=== PATIENT | female | born 1940 | race Two or more races ===

== ENCOUNTER 2017-11-28 18:35 | Inpatient (IN) | payer BC, OTHER ==
[2017-11-28 19:36] VITALS: BMI 22.9
--- NOTE | 2017-11-28 20:08 | PDOC ---
History of Present Illness - General Chief Complaint: Blood Pressure Problem Stated Complaint: FLU Time Seen by Provider: 11/28/17 19:19 History Source: Patient, Family Exam Limitations: No Limitations - History of Present Illness Initial Comments: 11/28/17 20:03 Patient is a 77-year-old female with history of HTN, HLD, her son for complaint of coughing 3 days, body ache, chest tightness. States cough is productive of sputum, assoc with chest tightness and sob. (+) bodyache, (+) subjective fever. Went to she her pmd yesterday and was given a MDI but did not improved so came to the ED for eval. Denies nausea, vomiting, diarrhea. Had the Flu shot 2 months ago. (+) smoker 3-4 cig per day. Went to urgent care today and had a flu swab (+) Flu A. States she was hypotensive and so sent to the ED. Patient noted to be hypoxic off oxygen to 92%, and hypotensive. PMD: Dr. Cox PMHX: as above ALL: NKDA GENERAL/CONSTITUTIONAL: [No fever or chills. No weakness. No weight change.] HEAD, EYES, EARS, NOSE AND THROAT: [No change in vision. No ear pain or discharge. No sore throat.] CARDIOVASCULAR: [No chest pain or shortness of breath.] RESPIRATORY: [No cough, wheezing, or hemoptysis.] GASTROINTESTINAL: [No nausea, vomiting, diarrhea or constipation. No rectal bleeding.] GENITOURINARY: [No dysuria, frequency, or change in urination.] MUSCULOSKELETAL: (+) joint or muscle swelling or pain. No neck or back pain.] SKIN AND BREASTS: [No rash or easy bruising.] NEUROLOGIC: [No headache, vertigo, loss of consciousness, or loss of sensation.] PSYCHIATRIC: [No depression or anxiety.] ENDOCRINE: [No increased thirst. No abnormal weight change.] HEMATOLOGIC/LYMPHATIC: [No anemia, easy bleeding, or history of blood clots.] ALLERGIC/IMMUNOLOGIC: [No hives or skin allergy. No latex allergy.] GENERAL: [The patient is awake, alert, and fully oriented, in no acute distress , moist cough.] HEAD: [Normal with no signs of trauma.] EYES: [Pupils equal, round and reactive to light, extraocular movements intact, sclera anicteric, conjunctiva clear.] ENT: [Ears normal, nares patent, oropharynx clear without exudates. Moist mucous membranes.] NECK: [Normal range of motion, supple without lymphadenopathy, JVD, or masses.] LUNGS: [Breath sounds equal, clear to auscultation bilaterally. No wheezes, and no crackles, hypoxic] HEART: [Regular rate and rhythm, normal S1 and S2 without murmur, rub.] ABDOMEN: [Soft, nontender, normoactive bowel sounds. No guarding, no rebound. No masses.] EXTREMITIES: [Normal range of motion, no edema. No clubbing or cyanosis. No cords, erythema, or tenderness.] NEUROLOGICAL: [Cranial nerves II through XII grossly intact. Normal speech, normal gait.] PSYCH: [Normal mood, normal affect.] SKIN: [Warm, Dry, normal turgor, no rashes or lesions noted.] Past History - Past Medical History Allergies/Adverse Reactions: Allergies Allergy/AdvReac Type Severity Reaction Status Date / Time No Known Allergies Allergy Verified 11/28/17 19:07 Home Medications: Ambulatory Orders Atorvastatin Ca [Lipitor] 10 mg PO HS #30 tablet 11/24/16 Losartan 50Mg/Hctz 12.5MG [Hyzaar -] 1 tab PO DAILY 11/28/17 Cardiac Disorders: Yes COPD: No Diabetes: Yes HTN: Yes Hypercholesterolemia: Yes - Suicide/Smoking/Psychosocial Hx Smoking History: Former smoker Have you smoked in the past 12 months: Yes Number of Cigarettes Smoked Daily: 3 Information on smoking cessation initiated: No 'Breaking Loose' booklet given: 11/23/16 Hx Alcohol Use: No Drug/Substance Use Hx: No Substance Use Type: None Hx Substance Use Treatment: No *Physical Exam - Vital Signs Last Vital Signs Temp Pulse Resp BP Pulse Ox 98.7 F 78 17 93/58 95 11/28/17 19:07 11/28/17 19:43 11/28/17 19:43 11/28/17 19:43 11/28/17 19:43 ED Treatment Course - LABORATORY CBC & Chemistry Diagram: 11/29/17 07:05 11/29/17 07:05 - RADIOLOGY Radiology Studies Ordered: Category Date Time Status CHEST X-RAY PORTABLE* [RAD] Stat Radiology 11/28/17 19:55 Ordered Medical Decision Making - Medical Decision Making 11/28/17 20:09 Patient is a 77-year-old female with history of HTN, HLD, her son for complaint of coughing 3 days, body ache, chest tightness, noted to be hypotensive and hypoxic on exam. Initiate sepsis workup. noted off oxygen to be 92% labs reviewed noted 11/28/17 21:40 Laboratory Tests 11/28/17 11/28/17 11/28/17 20:20 20:20 20:20 WBC 9.4 D Hgb 14.0 Hct 41.0 Plt Count 265 Sodium 127 L Potassium 4.9 Chloride 92 L Carbon Dioxide 29 Anion Gap 6 L BUN 24 H Creatinine 2.0 H Random Glucose 100 Lactic Acid 1.3 Troponin I 11/28/17 20:20 WBC Hgb Hct Plt Count Sodium Potassium Chloride Carbon Dioxide Anion Gap BUN Creatinine Random Glucose Lactic Acid Troponin I < 0.02 CXR haziness at the right base, not change from prior EKG SR rate 80, NAD, (-) ST-T wave changes, QTc 422 Patient is currently receiving fluids will admit for hypoxia with cough, clinically pneumonia hyponatremia and hypotension 11/28/17 21:45 Given Rocephin 1gm and Zithromax 500mg IV ASA 325mg po given tamiflu 30mg po *DC/Admit/Observation/Transfer Diagnosis at time of Disposition: Hypoxia, Hyponatremia Hypotension Qualifiers: Hypotension type: other hypotension type Qualified Code(s): I95.89 - Other hypotension - Discharge Dispostion Condition at time of disposition: Stable Admit: Yes - Referrals - Patient Instructions - Post Discharge Activity
[2017-11-28 20:38] LABS: BASO % 0.8 % (0-2.0); EOS % 0.1 % (0-4.5); LYMPH % 23.4 % (8-40); MCH 31.1 pg (25.7-33.7); MEAN CELL VOLUME 91.6 fl (80-96); MEAN PLT VOLUME 6.9 fl (7.5-11.1); MONO % 10.2 % (3.8-10.2); NEUT % 65.5 % (42.8-82.8); PLATELET COUNT 265 K/MM3 (134-434); RBC 4.48 M/mm3 (3.60-5.2); RDW 13.2 % (11.6-15.6); WHITE BLOOD COUNT 9.4 K/mm3 (4.0-10.0)
[2017-11-28 20:46] LABS: VENOUS PC02 46.8 mmHg (38-52); VENOUS PH 7.36 (7.32-7.42); VENOUS PO2 20.3 mmHg (28-48)
[2017-11-28] MEDS ORDERED: SODIUM CHLORIDE 0.9% 500 ML INFUS.BAG IV ONE (20:47)
[2017-11-28 20:52] LABS: INR 1.01 (0.82-1.09); PROTHROMBIN TIME (PATIENT) 11.4 SEC (9.98-11.88)
[2017-11-28 20:54] LABS: ACTIVATED PTT 30.5 SECONDS (26.9-34.4)
[2017-11-28 21:03] LABS: ALBUMIN 3.8 g/dl (3.4-5.0); ANION GAP 6 (8-16); BILIRUBIN,TOTAL 0.9 mg/dL (0.2-1.0); BLOOD UREA NITROGEN 24 mg/dL (7-18); CALCIUM 9.1 mg/dL (8.5-10.1); CHLORIDE 92 mmol/L (98-107); CO2 29 mmol/L (21-32); GLUCOSE,RANDOM 100 mg/dL (74-106); POTASSIUM 4.9 mmol/L (3.5-5.1); SGOT/AST 27 U/L (15-37); SGPT/ALT 20 U/L (12-78); SODIUM 127 mmol/L (136-145); TOT PROT 7.5 g/dl (6.4-8.2)
[2017-11-28 21:04] LABS: ALK PHOS 75 U/L (45-117)
[2017-11-28] MEDS ORDERED: CEFTRIAXONE 1 GM in DEXTROSE 5%-WATER - 50 ML IVPB ONE (21:08)
[2017-11-28] MEDS ORDERED: AZITHROMYCIN IVPB 500 MG in DEXTROSE 5%-WATER - 250 ML IVPB ONE (21:08)
[2017-11-28] MEDS ORDERED: AZITHROMYCIN IVPB 250 ML IVPB ONE (21:13)
[2017-11-28] MEDS ORDERED: CEFTRIAXONE 1 GM/50 ML BAG ONE ×2 (21:13→21:14)
[2017-11-28] MEDS ORDERED: SODIUM CHLORIDE 0.9% 1000 ML INFUS.BAG IV SCH (21:15)
[2017-11-28] MEDS ORDERED: ASPIRIN 325 MG ENTERIC COATED TABLET (FP) PO ONE (21:44)
[2017-11-28] MEDS ORDERED: ASPIRIN 325 MG TABLET ONE (21:50)
[2017-11-28] MEDS ORDERED: OSELTAMIVIR PHOSPHATE 30 MG CAPSULE PO ONE (22:39)
[2017-11-28] MEDS ORDERED: SODIUM CHLORIDE 1,000 ML IV SCH (22:45)
[2017-11-28 22:52] LABS: URINE APPEARANCE CLOUDY; URINE BILIRUBIN NEGATIVE (NEGATIVE); URINE BLOOD 1+ (NEGATIVE); URINE COLOR AMBER; URINE GLUCOSE (UA) 1+ (NEGATIVE); URINE KETONE NEGATIVE (NEGATIVE); URINE NITRITE NEGATIVE (NEGATIVE); URINE UROBILINOGEN 4.0 E.U/dl mg/dL (0.2-1.0)
[2017-11-28 22:57] LABS: URINE LEUK ESTERASE 3+ (NEGATIVE); URINE PROTEIN 2+ (NEGATIVE)
[2017-11-28 23:12] LABS: EPI CELLS MANY /HPF (FEW); URINE BACTERIA RARE /hpf (NONE SEEN); URINE HYALINE CAST 22 /lpf; URINE MUCUS FEW
[2017-11-28] MEDS ORDERED: HEPARIN NA (PORCINE) 5,000 UNITS/ML 1ML VIAL ONE (23:38)
[2017-11-28] MEDS: HEPARIN NA (PORCINE) 5,000 UNITS/ML 1ML VIAL SQ SCH (23:43)
--- NOTE | 2017-11-29 | HP ---
CHIEF COMPLAINT: flu like sx x 3 days PCP: HISTORY OF PRESENT ILLNESS: 77 y/o F with PMH HTN, HLD, DM, osteoporosis, who presents to the ED c/o cough, myalgias, and chest tightness over the past three days. As per pt, her sx began suddenly three days ago and have been a/w neck pain (not stiffness), as well as generalized abdominal pain. She endorses productive cough with white sputum ( without blood), as well as loss of appetite during this time. Pt went to her PMD , Dr. Cox yesterday and was given a meter-dose inhaler for sx use, however her sx were not alleviated. For this reason, she went to an urgent care today for further evaluation, where she tested positive for Flu A and was recommended continued follow up in the ED. She also endorses subjective fever and chills. Denies SOB, chest pain or pressure, or changes in urinary or bowel function. While pt was in the ED, she was stated to be hypotensive at 93/58 (MAP 70) and hypoxic on RA. She was started on nonrebreather, then 2-3L via NC where she improved to 94-95 sat. 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 Smoking: smoked for 50 years, 2-3 cigs/day. Still smokes actively, no thoughts of quitting Alcohol: denies Drugs: denies Family History: denies Allergies No Known Allergies Allergy (Verified 11/28/17 19:07) HOME MEDICATIONS: Home Medications Medication Instructions Recorded Atorvastatin Ca [Lipitor] 10 mg PO HS #30 tablet 11/24/16 Losartan 50Mg/Hctz 12.5MG [Hyzaar 1 tab PO DAILY 11/28/17 -] REVIEW OF SYSTEMS CONSTITUTIONAL: +subjective fever, chills, loss of appetite Absent: fever, chills, diaphoresis, generalized weakness, malaise, loss of appetite, weight change HEENT: Absent: rhinorrhea, nasal congestion, throat pain, throat swelling, difficulty swallowing, mouth swelling, ear pain, eye pain, visual changes CARDIOVASCULAR: Absent: chest pain, syncope, palpitations, irregular heart rate, lightheadedness , peripheral edema RESPIRATORY: +cough Absent: cough, shortness of breath, dyspnea with exertion, orthopnea, wheezing, stridor, hemoptysis GASTROINTESTINAL: Absent: abdominal pain, abdominal distension, nausea, vomiting, diarrhea, constipation, melena, hematochezia GENITOURINARY: Absent: dysuria, frequency, urgency, hesitancy, hematuria, flank pain, genital pain MUSCULOSKELETAL: +myalgias Absent: myalgia, arthralgia, joint swelling, back pain, neck pain SKIN: Absent: rash, itching, pallor HEMATOLOGIC/IMMUNOLOGIC: Absent: easy bleeding, easy bruising, lymphadenopathy, frequent infections ENDOCRINE: Absent: unexplained weight gain, unexplained weight loss, heat intolerance, cold intolerance NEUROLOGIC: Absent: headache, focal weakness or paresthesias, dizziness, unsteady gait, seizure, mental status changes, bladder or bowel incontinence PSYCHIATRIC: Absent: anxiety, depression, suicidal or homicidal ideation, hallucinations. PHYSICAL EXAMINATION Vital Signs 11/28/17 11/28/17 11/28/17 19:07 19:43 22:42 Temperature 98.7 F Pulse Rate 83 Pulse Rate [ 78 Radial] Respiratory 20 17 19 Rate Blood Pressure 92/57 Blood Pressure 93/58 111/56 [Arm] O2 Sat by Pulse 100 95 98 Oximetry (%) 11/28/17 23:47 Temperature Pulse Rate Pulse Rate [ 74 Radial] Respiratory 17 Rate Blood Pressure Blood Pressure 95/49 [Arm] O2 Sat by Pulse 100 Oximetry (%) GENERAL: Lying in bed. Awake, alert, and fully oriented, in mild distress. HEAD: Normal with no signs of trauma. EYES: Pupils equal, round and reactive to light, extraocular movements intact, sclera anicteric, conjunctiva clear. No lid lag. EARS, NOSE, THROAT: Ears normal, nares patent, oropharynx clear without exudates. NECK: Normal range of motion, supple without lymphadenopathy, JVD, or masses. LUNGS: Breath sounds equal, clear to auscultation bilaterally. wheezing. no crackles, No accessory muscle use. HEART: Regular rate and rhythm, normal S1 and S2 without murmur, rub or gallop. ABDOMEN: Soft, +BS in all four quadrants. Mildly tender to palpation diffusely. MUSCULOSKELETAL: Normal range of motion at all joints. No bony deformities or tenderness. . LOWER EXTREMITIES: 2+ posterior tibial pulses, warm, well-perfused. No calf tenderness. No peripheral edema. NEUROLOGICAL: Cranial nerves II-XII intact. Normal speech. Laboratory Results 11/28/17 11/28/17 11/28/17 20:20 20:20 20:20 WBC 9.4 D RBC 4.48 Hgb 14.0 Hct 41.0 MCV 91.6 MCH 31.1 MCHC 34.0 RDW 13.2 Plt Count 265 MPV 6.9 L Neutrophils % 65.5 D Lymphocytes % 23.4 D Monocytes % 10.2 Eosinophils % 0.1 D Basophils % 0.8 PT with INR 11.40 INR 1.01 PTT (Actin FS) 30.5 VBG pH 7.36 POC VBG pCO2 46.8 POC VBG pO2 20.3 L Mixed VBG HCO3 26.0 H Sodium 11/28/17 11/28/17 11/28/17 20:20 20:20 20:20 WBC Mixed VBG HCO3 Sodium 127 L Potassium 4.9 Chloride 92 L Carbon Dioxide 29 Anion Gap 6 L BUN 24 H Creatinine 2.0 H Creat Clearance w eGFR 24.29 Random Glucose 100 Lactic Acid 1.3 Calcium 9.1 Total Bilirubin 0.9 AST 27 ALT 20 Alkaline Phosphatase 75 Troponin I < 0.02 Total Protein 7.5 Albumin 3.8 Urine Color Urine Mucus 11/28/17 22:42 WBC RBC Hgb Hct MCV MCHC Monocytes % Eosinophils % Basophils % PT with INR INR PTT (Actin FS) VBG pH POC VBG pCO2 POC VBG pO2 Mixed VBG HCO3 Sodium Potassium Chloride Carbon Dioxide Anion Gap BUN Creatinine Creat Clearance w eGFR Random Glucose Lactic Acid Calcium Total Bilirubin AST ALT Alkaline Phosphatase Troponin I Total Protein Albumin Urine Color [place] Urine Appearance Cloudy Urine pH 5.0 D Ur Specific [place] 1.015 Urine Protein 2+ H Urine Glucose (UA) 1+ H Urine Ketones Negative Urine Blood 1+ H Urine Nitrite Negative Urine Bilirubin Negative Urine Urobilinogen 4.0 e.u/dl H Ur Leukocyte Esterase 3+ H Urine WBC (Auto) 17 Urine RBC (Auto) 7 Ur Epithelial Cells Many Urine Bacteria Rare Hyaline Casts 22 Urine Mucus Few EKG: normal sinus, rate 90, QTc 422ms CXR: no evidence of infiltrate, await official read ASSESSMENT/PLAN: 77 y/o F with PMH HTN, HLD, DM, osteoporosis, who presents to the ED c/o cough, myalgias, and chest tightness over the past three days. Pt admitted to tele observation for hypoxia 2/2 potential influenza, URI, as well as UTI. #Hypoxia 2/2 potential influenza -Pt hypoxic on RA (new) - sat 91-92%, requiring nonrebreather, 02 NC -Urgent care Flu (+), however in house Flu test (-) -Will tx with Tamiflu 30mg PO qd for five day course regardless -Isolation precautions -Unlikely PNA, as infiltrates not noted on CXR. Received CAP coverage - azithro , ceftriaxone x1 in ED. Pt is not septic currently. -Will f/u Legionella urine Ag -F/u blood cx, urine cx #UTI -Pt sx with diffuse TTP in suprapubic region, UA with leuk esterase 3+, 17 WBCs -Received 1 dose ceftriaxone in ED -Will continue ceftriaxone 1g IVPB qd for 2-3 additional days #Hypotension 2/2 decreased fluid intake -Pt currently not hypotensive though BP 90/60's - MAP holding 70 -Will give IVF and reassess #COPD -Wheezing, SOB -Started on duonebs q4h PRN for SOB -F/u Urine cx #RIGOBERTO 2/2 decreased fluid intake -Cr 2, bump up from baseline 1.1 -Gentle hydration IV NS 83 cc/hr -F/u Renal sono -Urine lytes, u osm, serum osm - calculate FEna -F/u BMP #Hyponatremia -Pt appears hypovolemic -Gentle hydration IV NS 83 cc/hr -Careful to not correct too quickly #HTN- currently controlled - hypotensive -Hold meds -Restart on losartan -HCTZ 50-12.5mg tomorrow #HLD -Continue lipitor 10mg PO HS #DM -ISS -BGM -A1c #F/E/N IV NS 83 cc/hr gentle hydration Monitor electrolytes, mainly Na HTN diet #PPX DVT: SCD's, early ambulation #Dispo observation monitoring Visit type - Emergency Visit Emergency Visit: Yes ED Registration Date: 11/28/17 Care time: The patient presented to the Emergency Department on the above date and was hospitalized for further evaluation of their emergent condition. - New Patient This patient is new to me today: Yes Date on this admission: 11/29/17 - Critical Care Critical Care patient: No Hospitalist Screening - Colonoscopy Questionnaire Colonoscopy Questionnaire: Colonoscopy Questionnaire - Patient: 50 - 75 years old and never had a screening colonoscopy: Unknown History of colon or rectal polyps, or CA: Unknown History of IBD, Crohn's disease or UC: Unknown History of abdominal radiation therapy as a child: Unknown - Relative: 1 with colon or rectal CA, or polyps at age 60 or younger: Unknown Colon or rectal CA diagnosed at age 45 or younger: Unknown Multiple relatives with colon or rectal CA: Unknown - Outcome: Screening Result: Negative Screen
--- NOTE | 2017-11-29 04:10 | PN ---
Teaching Attending Note Name of Resident: Ophelia Vick ATTENDING PHYSICIAN STATEMENT I saw and evaluated the patient. I reviewed the resident's note and discussed the case with the resident. I agree with the resident's findings and plan as documented. SUBJECTIVE: 77F smoker presents with cough, body aches, pleuritic chest pain for past 3 days. went to urgent care where apparently flu was positive. OBJECTIVE: NAD mild late exp wheezes bilaterally mild suprapubic tenderness Influenza panel negative Cr 2 from 1.1 baseline BUN 24 NA 127 UA positive ASSESSMENT AND PLAN: 77F with likely viral bronchitis , possible influenza though our panel was negative. complicated by RIGOBERTO, likely hypovolemic hyopnatremia start empric tamiflu, if possible obtain report from urgent care center in AM IVF 100/hr continue ceftriaxone for possible UTI - follow up UCx Renal US, Urine lytes
[2017-11-29] MEDS ORDERED: ALBUTEROL SO4 2.5/IPRATROPIUM 0.5 INH SOL 3 ML VIAL.NEB. NEB PRN (04:21)
[2017-11-29] MEDS: SODIUM CHLORIDE 1,000 ML IV SCH ×2 (04:25→12:06)
[2017-11-29] MEDS: INSULIN SLIDING SCALE (NOVOLOG) 1 VIAL SQ SCH ×4 (06:05→21:31)
[2017-11-29 07:29] LABS: BASO % 0.4 % (0-2.0); EOS % 0.3 % (0-4.5); HEMATOCRIT 35.6 % (32.4-45.2); HEMOGLOBIN 12.2 GM/dL (10.7-15.3); LYMPH % 44.1 % (8-40); MCH 31.1 pg (25.7-33.7); MCHC 34.2 g/dl (32.0-36.0); MEAN CELL VOLUME 90.8 fl (80-96); MEAN PLT VOLUME 6.8 fl (7.5-11.1); MONO % 9.3 % (3.8-10.2); NEUT % 45.9 % (42.8-82.8); PLATELET COUNT 223 K/MM3 (134-434); RBC 3.92 M/mm3 (3.60-5.2); RDW 13.1 % (11.6-15.6); WHITE BLOOD COUNT 7.2 K/mm3 (4.0-10.0)
[2017-11-29 08:24] LABS: ANION GAP 10 (8-16); BLOOD UREA NITROGEN 23 mg/dL (7-18); CHLORIDE 100 mmol/L (98-107); CO2 23 mmol/L (21-32); GLUCOSE,RANDOM 79 mg/dL (74-106); MAGNESIUM 1.9 mg/dL (1.8-2.4); POTASSIUM 4.1 mmol/L (3.5-5.1); SODIUM 133 mmol/L (136-145)
[2017-11-29 08:26] LABS: CREATININE 1.4 mg/dL (0.55-1.02); PHOSPHOROUS 2.8 mg/dL (2.5-4.9)
[2017-11-29] MEDS ORDERED: cefTRIAXone SODIUM 1 GM VIAL ONE (09:17)
[2017-11-29] MEDS ORDERED: DEXTROSE 5%-WATER - 50 ML IVPB ONE (09:18)
[2017-11-29] MEDS: CEFTRIAXONE 1 GM in DEXTROSE 5%-WATER - 50 ML IVPB SCH (09:21)
[2017-11-29] MEDS: HEPARIN NA (PORCINE) 5,000 UNITS/ML 1ML VIAL SQ SCH ×2 (09:23→21:31)
[2017-11-29] MEDS ORDERED: OSELTAMIVIR PHOSPHATE 30 MG CAPSULE PO SCH (10:00)
--- NOTE | 2017-11-29 14:07 | PN ---
Progress Note, Physician Chief Complaint: patient seen and examined sitting in bed says her cough is better - Current Medication List Current Medications: Active Medications Albuterol/Ipratropium (Duoneb -) 1 amp NEB Q4H PRN PRN Reason: SHORTNESS OF BREATH Heparin Sodium (Porcine) (Heparin -) 5,000 unit SQ BID [facility] Last Admin: 11/29/17 09:23 Dose: 5,000 unit Ceftriaxone Sodium 1 gm/ (Dextrose) 50 mls @ 100 mls/hr IVPB DAILY [facility] Last Admin: 11/29/17 09:21 Dose: 100 mls/hr Sodium Chloride (Normal Saline -) 1,000 mls @ 83 mls/hr IV ASDIR [facility] Last Admin: 11/29/17 12:06 Dose: 83 mls/hr Insulin Aspart (Novolog Vial Sliding Scale -) 1 vial SQ ACHS ALLI PRN Reason: Protocol Last Admin: 11/29/17 12:04 Dose: Not Given Oseltamivir Phosphate (Tamiflu -) 30 mg PO DAILY [facility] Stop: 12/04/17 09:59 Last Admin: 11/29/17 11:00 Dose: 30 mg - Objective Vital Signs: Vital Signs Temperature 98.7 F 11/29/17 09:00 Pulse Rate 79 11/29/17 09:00 Respiratory Rate 20 11/29/17 09:00 Blood Pressure 117/63 11/29/17 09:00 O2 Sat by Pulse Oximetry (%) 98 11/29/17 09:00 Constitutional: Yes: Calm Cardiovascular: Yes: Regular Rate and Rhythm, S1, S2 Respiratory: Yes: CTA Bilaterally Neurological: Yes: Alert, Oriented Labs: CBC, BMP 11/29/17 07:05 11/29/17 07:05 INR, PTT INR 1.01 (0.82-1.09) 11/28/17 20:20 Problem List - Problems (1) Cough Assessment/Plan: r/o broncitis legionella negative flu swab is negative iv abx Code(s): R05 - COUGH (2) UTI (urinary tract infection) Assessment/Plan: iv rocephin awaiting final sensitivities Code(s): N39.0 - URINARY TRACT INFECTION, SITE NOT SPECIFIED (3) Hyponatremia Assessment/Plan: ivf - sodium trending upwards renal sono noted- nornmal Code(s): E87.1 - HYPO-OSMOLALITY AND HYPONATREMIA (4) DM2 (diabetes mellitus, type 2) Assessment/Plan: hgab1c is 6.3 prediabetes diet control Code(s): E11.9 - TYPE 2 DIABETES MELLITUS WITHOUT COMPLICATIONS (5) RIGOBERTO (acute kidney injury) Assessment/Plan: improving with iv hydration cr from 2.0 to 1.4 Code(s): N17.9 - ACUTE KIDNEY FAILURE, UNSPECIFIED
--- NOTE | 2017-11-29 14:48 | PN ---
Progress Note (short form) - Note Progress Note: ID Consult dictated Acute influenza UTI RIGOBERTO Await BC Continue ceftriaxone tamiflu Droplet precautions
--- NOTE | 2017-11-29 15:02 | EKG ---
Test Reason : Blood Pressure : / mmHG Vent. Rate : 080 BPM Atrial Rate : 080 BPM P-R Int : 154 ms QRS Dur : 078 ms QT Int : 366 ms P-R-T Axes : 079 072 076 degrees QTc Int : 422 ms POOR DATA QUALITY, INTERPRETATION MAY BE ADVERSELY AFFECTED NORMAL SINUS RHYTHM POSSIBLE LEFT ATRIAL ENLARGEMENT ST ELEVATION, CONSIDER EARLY REPOLARIZATION, PERICARDITIS, OR INJURY WHEN COMPARED WITH ECG OF 23-NOV-2016 00:50, NO SIGNIFICANT CHANGE WAS FOUND Confirmed by GREGG GREGG MD ([id number]) on 11/29/2017 3:01:55 PM Referred By: Confirmed By:GREGG GREGG MD
--- NOTE | 2017-11-29 15:46 | CON.NEP ---
Consult Consult Specialty:: nephrology Reason for Consultation:: hyponatremia - History of Present Illness Chief Complaint: cough/dyspnea History of Present Illness: 77 y/o F with PMH HTN, HLD, DM, osteoporosis, who presents to the ED c/o cough, myalgias, and chest tightness over the past three days. As per pt, her sx began suddenly three days ago and have been a/w neck pain (not stiffness), as well as generalized abdominal pain. She endorses productive cough with white sputum ( without blood), as well as loss of appetite during this time. She was found to have influenza A and came to ED via ambulance. Has no history of ckd or hyponatremia. Was having fevers but no vomting or diarrhea. - History Source History Provided By: Patient, Medical Record Limitations to Obtaining History: No Limitations - Past Medical History Cardio/Vascular: Yes: HTN - Alcohol/Substance Use Hx Alcohol Use: No - Smoking History Smoking history: Former smoker Have you smoked in the past 12 months: Yes Aproximately how many cigarettes per day: 3 Home Medications - Allergies Allergies/Adverse Reactions: Allergies Allergy/AdvReac Type Severity Reaction Status Date / Time No Known Allergies Allergy Verified 11/28/17 19:07 - Home Medications Home Medications: Ambulatory Orders Atorvastatin Ca [Lipitor] 10 mg PO HS #30 tablet 11/24/16 Losartan 50Mg/Hctz 12.5MG [Hyzaar -] 1 tab PO DAILY 11/28/17 Family Disease History - Family Disease History Family History: Unremarkable Review of Systems - Review of Systems Constitutional: reports: Fever Eyes: reports: No Symptoms HENT: reports: No Symptoms Neck: reports: No Symptoms Cardiovascular: reports: Chest Pain, Shortness of Breath Respiratory: reports: Cough, SOB Gastrointestinal: reports: No Symptoms Genitourinary: reports: No Symptoms Breasts: reports: No Symptoms Reported Musculoskeletal: reports: Back Pain, Muscle Cramps Neurological: reports: No Symptoms Endocrine: reports: No Symptoms Hematology/Lymphatic: reports: No Symptoms Psychiatric: reports: No Symptoms Nephrology Consult - Height Height: 5 ft 10 in - Weight Weight: 160 lb - BMI Body Mass Index (BMI): 22.9 - Lab Results CBC,BMP: CBC, BMP 11/29/17 07:05 11/29/17 07:05 Anion Gap: Anion Gap Anion Gap 10 (8-16) 11/29/17 07:05 - Imaging Chest X-ray: Report Reviewed (no acute infiltrates) Ultrasound: Report Reviewed (normal) - Physical Examination Vital Signs: Vital Signs Temperature 98.8 F 11/29/17 14:09 Pulse Rate 81 11/29/17 14:09 Respiratory Rate 18 11/29/17 14:09 Blood Pressure 117/57 11/29/17 14:09 O2 Sat by Pulse Oximetry (%) 98 11/29/17 09:00 Constitutional: Yes: Well Nourished, No Distress, Calm Eyes: Yes: Conjunctiva Clear HENT: Yes: Atraumatic, Normocephalic Neck: Yes: Supple, Trachea Midline Cardiovascular: Yes: Regular Rate and Rhythm Respiratory: Yes: Regular, CTA Bilaterally Gastrointestinal: Yes: Normal Bowel Sounds Musculoskeletal: Yes: WNL Extremities: Yes: WNL Edema: No Peripheral Pulses WNL: Yes Wound/Incision: Yes: Clean/Dry Neurological: Yes: Alert, Oriented Psychiatric: Yes: Alert, Oriented Assessment/Plan IMPRESSION RIGOBERTO associated with hypotension and hyponatremia; already improved with ivf influenza testing was pos as outpatient (reportedly) but negative here does have a urinary tract by UA low urine osm suggestive of increased water clearance PLAN would continue fluids need to clarify if droplet precautions are necessary as suggested by ID abx for uti follow urine cultures would evaluate for ckd as outpatient MV
--- NOTE | 2017-11-29 16:12 | CONS ---
DATE OF CONSULTATION: DATE OF DICTATION: 11/29/2017 INFECTIOUS DISEASE CONSULTATION HISTORY OF PRESENT ILLNESS: The patient is a 77-year-old female who is evaluated for acute influenza and urinary tract infection. The patient reports a 3-day history of chest discomfort, back discomfort, pleuritic-type chest pain, cough productive of whitish sputum and body ache. She had been prescribed an inhaler as an outpatient without significant improvement. Symptoms worsened. She presented to an urgent care center where she was noted to be hypotensive and hypoxemic. A rapid influenza A screen was positive. She is presently admitted to the hospital. She complains of chest and back pain which is pleuritic in nature, cough productive of whitish sputum. She has been afebrile. Cultures were obtained and she was empirically started on Zithromax, ceftriaxone, and Tamiflu. She has urinary frequency and urgency. She denies dysuria. PAST MEDICAL HISTORY: Positive for hypertension, hyperlipidemia. ALLERGIES: No known allergies. MEDICATION: Lipitor, losartan, hydrochlorothiazide. SOCIAL HISTORY: Lives at home with family members. Positive active tobacco use. SYSTEMS REVIEW: Neurologic: No loss of consciousness, seizure activity, or focal weakness. Cardiac: As per HPI. Respiratory: As per HPI. Gastrointestinal: Negative vomiting or diarrhea. Genitourinary: As per HPI. LABORATORY: Lab data, white count on admission 9.4, presently 7.2. Hematocrit 35.6, platelet count 223. BUN 23, creatinine 1.4. Urinalysis: 17 white cells. Chest x-ray negative for acute infiltrate. PHYSICAL EXAMINATION: General: She is awake. She is weak appearing with sinus congestion and cough, slightly dyspneic at rest. Vital signs: Temperature 98.8, blood pressure 117/57, pulse 81 regular, respirations 18 per minute. HEENT: Sclerae anicteric. Oropharynx mild injection. Neck: Supple. No palpable nodes. Cardiovascular: Heart sounds S1, S2. Respiratory: Lungs scattered rhonchi. No wheezing or rales. Abdomen: Soft. Nontender. Extremities: Negative for edema. IMPRESSION: 1. Acute influenza A. 2. Urinary tract infection. 3. Azotemia. Await culture results. Continue ceftriaxone for empiric coverage of urinary tract pathogens. Tamiflu adjusted for creatinine clearance calculated at 40 with 30 mg p.o. b.i.d. for 5 days. precautions. Will follow. Thank you for the kind referral. GREGG VOSS M.D. [facility]ANT[facility]/[id number]
[2017-11-29] MEDS ORDERED: PT OWN MED DRAWER 7, Y5N ONE (21:29)
[2017-11-29] MEDS: OSELTAMIVIR PHOSPHATE 30 MG CAPSULE PO SCH (21:32)
[2017-11-29] MEDS ORDERED: INSULIN (NOVOLOG) ASPART 100 UNITS/ML 10ML VIAL ONE (21:37)
[2017-11-30] MEDS: INSULIN SLIDING SCALE (NOVOLOG) 1 VIAL SQ SCH ×4 (06:40→22:55)
[2017-11-30 07:41] LABS: BASO % 0.9 % (0-2.0); EOS % 0.6 % (0-4.5); HEMATOCRIT 35.2 % (32.4-45.2); HEMOGLOBIN 11.9 GM/dL (10.7-15.3); LYMPH % 46.8 % (8-40); MCH 31.1 pg (25.7-33.7); MCHC 33.9 g/dl (32.0-36.0); MEAN CELL VOLUME 91.9 fl (80-96); MEAN PLT VOLUME 7.2 fl (7.5-11.1); MONO % 8.3 % (3.8-10.2); NEUT % 43.4 % (42.8-82.8); PLATELET COUNT 257 K/MM3 (134-434); RBC 3.83 M/mm3 (3.60-5.2); RDW 13.2 % (11.6-15.6); WHITE BLOOD COUNT 6.7 K/mm3 (4.0-10.0)
[2017-11-30 08:06] LABS: ALBUMIN 3.1 g/dl (3.4-5.0); ANION GAP 5 (8-16); BLOOD UREA NITROGEN 17 mg/dL (7-18); CALCIUM 8.4 mg/dL (8.5-10.1); CHLORIDE 104 mmol/L (98-107); CO2 27 mmol/L (21-32); GLUCOSE,RANDOM 83 mg/dL (74-106); POTASSIUM 4.8 mmol/L (3.5-5.1); SODIUM 136 mmol/L (136-145)
[2017-11-30 08:11] LABS: ALK PHOS 63 U/L (45-117); BILIRUBIN,TOTAL 0.5 mg/dL (0.2-1.0); CREATININE 1.1 mg/dL (0.55-1.02); SGOT/AST 23 U/L (15-37); SGPT/ALT 18 U/L (12-78); TOT PROT 6.2 g/dl (6.4-8.2)
[2017-11-30] MEDS ORDERED: PT OWN MED DRAWER 7, Y5N ONE (09:11)
[2017-11-30] MEDS ORDERED: cefTRIAXone SODIUM 1 GM VIAL ONE (09:11)
[2017-11-30] MEDS ORDERED: DEXTROSE 5%-WATER - 50 ML IVPB ONE (09:12)
[2017-11-30] MEDS: OSELTAMIVIR PHOSPHATE 30 MG CAPSULE PO SCH ×2 (09:17→22:51)
[2017-11-30] MEDS: HEPARIN NA (PORCINE) 5,000 UNITS/ML 1ML VIAL SQ SCH ×2 (09:17→22:51)
[2017-11-30] MEDS: CEFTRIAXONE 1 GM in DEXTROSE 5%-WATER - 50 ML IVPB SCH (09:17)
--- NOTE | 2017-11-30 10:22 | PN ---
Progress Note (short form) - Note Progress Note: RENAL Says she feels better and wants to leave not coughing no nausea or vomiting no diarrhea able to eat says she was not eating or drinking before Last Vital Signs Temp Pulse Resp BP Pulse Ox 99 F 72 19 127/68 98 11/30/17 06:00 11/30/17 06:00 11/30/17 06:00 11/30/17 06:00 11/29/17 21:00 lungs essentially clear, rare crackles cvs s1s2 rr abd soft ext no edema neuro a+ox3 skin no rashes or lesions noted Current Medications Generic Name Dose Route Start Last Admin Trade Name Freq PRN Reason Stop Dose Admin Albuterol/Ipratropium 1 amp 11/29/17 04:21 Duoneb - NEB Q4H PRN SHORTNESS OF BREATH Heparin Sodium (Porcine) 5,000 unit 11/28/17 23:00 11/30/17 09:17 Heparin - SQ 5,000 unit BID ALLI Administration Ceftriaxone Sodium 1 gm/ 50 mls @ 100 mls/hr 11/29/17 10:00 11/30/17 09:17 Dextrose IVPB 100 mls/hr DAILY ALLI Administration Sodium Chloride 1,000 mls @ 83 mls/hr 11/29/17 04:21 11/29/17 12:06 Normal Saline - IV 83 mls/hr ASDIR ALLI Administration Insulin Aspart 1 vial 11/29/17 07:00 11/30/17 06:40 Novolog Vial Sliding Scale - SQ Not Given ACHS ALLI Protocol Oseltamivir Phosphate 30 mg 11/29/17 22:00 11/30/17 09:17 Tamiflu - PO 12/04/17 21:59 30 mg BID ALLI Administration CBC, BMP 11/30/17 06:59 11/30/17 06:59 IMPRESSION RIGOBERTO associated with hypotension and hyponatremia; already improved with ivf influenza testing was pos as outpatient (reportedly) but negative here does have a urinary tract infection by UA hyponatremia and rigoberto improved PLAN can dc fluids and feed abx for uti follow urine cultures would evaluate for ckd as outpatient if she needs tamiflu will need to adjust dose
--- NOTE | 2017-11-30 11:55 | PN ---
Physical Exam: SUBJECTIVE: Patient seen and examined. She feels better. She denies cough, SOB. OBJECTIVE: Vital Signs Period Temp Pulse Resp BP Sys/Watkins Pulse Ox Last 24 Hr 98.0 F-99 F 69-81 18-19 106-127/53-96 96-98 GENERAL: The patient is awake, alert, and fully oriented, in no acute distress. LUNGS: Breath sounds equal, clear to auscultation bilaterally, no wheezes, no crackles, no accessory muscle use. HEART: Regular rate and rhythm, S1, S2 without murmur, rub or gallop. ABDOMEN: Soft, nontender, nondistended, normoactive bowel sounds, no guarding, no rebound, no hepatosplenomegaly, no masses. EXTREMITIES: 2+ pulses, warm, well-perfused, no edema. Laboratory Results - last 24 hr 11/29/17 11/29/17 11/29/17 12:03 17:10 21:27 WBC RBC Hgb Hct MCV MCH MCHC RDW Plt Count MPV Neutrophils % Lymphocytes % Monocytes % Eosinophils % Basophils % Sodium Potassium Chloride Carbon Dioxide Anion Gap BUN Creatinine Creat Clearance w eGFR POC Glucometer 91 95 154 Random Glucose Calcium Total Bilirubin AST ALT Alkaline Phosphatase Total Protein Albumin 11/30/17 11/30/17 11/30/17 06:08 06:59 06:59 WBC 6.7 RBC 3.83 Hgb 11.9 Hct 35.2 MCV 91.9 MCH 31.1 MCHC 33.9 RDW 13.2 Plt Count 257 MPV 7.2 L Neutrophils % 43.4 Lymphocytes % 46.8 H Monocytes % 8.3 Eosinophils % 0.6 D Basophils % 0.9 Sodium 136 Potassium 4.8 Chloride 104 Carbon Dioxide 27 Anion Gap 5 L BUN 17 Creatinine 1.1 H Creat Clearance w eGFR 48.42 POC Glucometer 93 Random Glucose 83 Calcium 8.4 L Total Bilirubin 0.5 D AST 23 ALT 18 Alkaline Phosphatase 63 Total Protein 6.2 L Albumin 3.1 L 11/30/17 11:03 WBC RBC Hgb Hct MCV MCH MCHC RDW Plt Count MPV Neutrophils % Lymphocytes % Monocytes % Eosinophils % Basophils % Sodium Potassium Chloride Carbon Dioxide Anion Gap BUN Creatinine Creat Clearance w eGFR POC Glucometer 97 Random Glucose Calcium Total Bilirubin AST ALT Alkaline Phosphatase Total Protein Albumin Active Medications Generic Name Dose Route Start Last Admin Trade Name Freq PRN Reason Stop Dose Admin Albuterol/Ipratropium 1 amp 11/29/17 04:21 Duoneb - NEB Q4H PRN SHORTNESS OF BREATH Heparin Sodium (Porcine) 5,000 unit 11/28/17 23:00 11/30/17 09:17 Heparin - SQ 5,000 unit BID ALLI Administration Ceftriaxone Sodium 1 gm/ 50 mls @ 100 mls/hr 11/29/17 10:00 11/30/17 09:17 Dextrose IVPB 100 mls/hr DAILY ALLI Administration Sodium Chloride 1,000 mls @ 83 mls/hr 11/29/17 04:21 11/29/17 12:06 Normal Saline - IV 83 mls/hr ASDIR ALLI Administration Insulin Aspart 1 vial 11/29/17 07:00 11/30/17 11:26 Novolog Vial Sliding Scale - SQ Not Given ACHS ALLI Protocol Oseltamivir Phosphate 30 mg 11/29/17 22:00 11/30/17 09:17 Tamiflu - PO 12/04/17 21:59 30 mg BID ALLI Administration ASSESSMENT/PLAN: 1. Acute kidney injury secondary to dehydration - Improved with IV fluid - Discontinue IV fluid and repeat BUN, creatinine in AM 2. Hypovolemic hyponatremia - Improved 3. Influenza A - Complete course of Tamiflu 4. UTI - Continue Rocephin (day 2) 5. Type 2 DM - Continue Novolog sliding scale 6. HTN - Meds held secondary to hypotension 7. Hyperlipidemia Visit type - Emergency Visit Emergency Visit: Yes ED Registration Date: 11/28/17 Care time: The patient presented to the Emergency Department on the above date and was hospitalized for further evaluation of their emergent condition. - New Patient This patient is new to me today: Yes Date on this admission: 11/30/17 - Critical Care Critical Care patient: No - Discharge Referral Referred to [facility] Med P.C[facility] No
[2017-11-30] MEDS: SODIUM CHLORIDE 1,000 ML IV SCH (15:32)
[2017-11-30] MEDS ORDERED: INSULIN (NOVOLOG) ASPART 100 UNITS/ML 10ML VIAL ONE (21:00)
[2017-12-01] MEDS: INSULIN SLIDING SCALE (NOVOLOG) 1 VIAL SQ SCH (06:35)
[2017-12-01 07:58] LABS: ANION GAP 9 (8-16); BLOOD UREA NITROGEN 12 mg/dL (7-18); CALCIUM 9.6 mg/dL (8.5-10.1); CHLORIDE 104 mmol/L (98-107); CO2 26 mmol/L (21-32); GLUCOSE,RANDOM 80 mg/dL (74-106); POTASSIUM 5.3 mmol/L (3.5-5.1); SODIUM 139 mmol/L (136-145)
[2017-12-01 08:02] LABS: CREATININE 1.1 mg/dL (0.55-1.02)
[2017-12-01] MEDS ORDERED: DEXTROSE 5%-WATER - 50 ML IVPB ONE (09:37)
[2017-12-01] MEDS ORDERED: cefTRIAXone SODIUM 1 GM VIAL ONE (09:37)
[2017-12-01] MEDS ORDERED: PT OWN MED DRAWER 7, Y5N ONE ×2 (09:37→11:00)
[2017-12-01] MEDS: CEFTRIAXONE 1 GM in DEXTROSE 5%-WATER - 50 ML IVPB SCH (09:55)
[2017-12-01] MEDS: HEPARIN NA (PORCINE) 5,000 UNITS/ML 1ML VIAL SQ SCH (09:56)
[2017-12-01] MEDS: OSELTAMIVIR PHOSPHATE 30 MG CAPSULE PO SCH (09:56)
--- NOTE | 2017-12-01 11:10 | PN ---
Progress Note (short form) - Note Progress Note: RENAL Says she feels better and wants to leave not coughing no nausea or vomiting no diarrhea able to eat Last Vital Signs Temp Pulse Resp BP Pulse Ox 98.9 F 80 16 148/83 95 12/01/17 06:00 12/01/17 06:00 12/01/17 06:00 12/01/17 06:00 11/30/17 21:00 lungs essentially clear cvs s1s2 rr abd soft ext no edema neuro a+ox3 skin no rashes or lesions noted CBC, BMP 11/30/17 06:59 12/01/17 06:57 Current Medications Generic Name Dose Route Start Last Admin Trade Name Freq PRN Reason Stop Dose Admin Albuterol/Ipratropium 1 amp 11/29/17 04:21 Duoneb - NEB Q4H PRN SHORTNESS OF BREATH Heparin Sodium (Porcine) 5,000 unit 11/28/17 23:00 12/01/17 09:56 Heparin - SQ 5,000 unit BID ALLI Administration Ceftriaxone Sodium 1 gm/ 50 mls @ 100 mls/hr 11/29/17 10:00 12/01/17 09:55 Dextrose IVPB 100 mls/hr DAILY ALLI Administration Insulin Aspart 1 vial 11/29/17 07:00 12/01/17 06:35 Novolog Vial Sliding Scale - SQ Not Given ACHS ALLI Protocol Oseltamivir Phosphate 30 mg 11/29/17 22:00 12/01/17 09:56 Tamiflu - PO 12/04/17 21:59 30 mg BID ALLI Administration IMPRESSION RIGOBERTO associated with hypotension and hyponatremia; already improved with ivf influenza testing was pos as outpatient (reportedly) but negative here does have a urinary tract infection by UA hyponatremia and rigoberto improved probably does have some degree of ckd PLAN abx for uti would evaluate for ckd as outpatient continue current management MV
[2017-12-01 11:16] VITALS: BP 127/73; PULSE 84; TEMP 98.4
--- NOTE | 2017-12-01 13:42 | DS ---
Physical Exam: SUBJECTIVE: Patient seen and examined OBJECTIVE: Vital Signs Period Temp Pulse Resp BP Sys/Watkins Pulse Ox Last 24 Hr 98.4 F-98.9 F 69-84 16-22 125-148/62-83 95 PHYSICAL EXAM GENERAL: The patient is awake, alert, and fully oriented, in no acute distress. HEAD: Normal with no signs of trauma. EYES: PERRL, extraocular movements intact, sclera anicteric, conjunctiva clear. ENT: Ears normal, nares patent, oropharynx clear without exudates, moist mucous membranes. NECK: Trachea midline, full range of motion, supple. LUNGS: Breath sounds equal, clear to auscultation bilaterally, no wheezes, no crackles, no accessory muscle use. HEART: Regular rate and rhythm, S1, S2 without murmur, rub or gallop. ABDOMEN: Soft, nontender, nondistended, normoactive bowel sounds, no guarding, no rebound, no hepatosplenomegaly, no masses. EXTREMITIES: 2+ pulses, warm, well-perfused, no edema. NEUROLOGICAL: Cranial nerves II through XII grossly intact. Normal speech, gait not observed. PSYCH: Normal mood, normal affect. SKIN: Warm, dry, normal turgor, no rashes or lesions noted. LABS Laboratory Results - last 24 hr 11/30/17 11/30/17 12/01/17 17:54 22:53 06:33 Sodium Potassium Chloride Carbon Dioxide Anion Gap BUN Creatinine POC Glucometer 124 95 83 Random Glucose Calcium 12/01/17 06:57 Sodium 139 Potassium 5.3 H Chloride 104 Carbon Dioxide 26 Anion Gap 9 BUN 12 Creatinine 1.1 H POC Glucometer Random Glucose 80 Calcium 9.6 HOSPITAL COURSE: Date of Admission:11/28/17 Date of Discharge: 12/01/17 Minutes to complete discharge: 30 Discharge Summary Reason For Visit: HYPONATREMIA,HYPOXIA,HYPOTENSION Current Active Problems RIGOBERTO (acute kidney injury) (Acute) Cough (Acute) Hyponatremia (Acute) Hypotension (Acute) Hypoxia (Acute) UTI (urinary tract infection) (Acute) Condition: Improved - Instructions Diet, Activity, Other Instructions: You were admitted for dehydration with low sodium from the flu and a urinary tract infection. You were treated with IV fluid, Tamiflu for the flu, and Rocephin for 3 days for the urinary tract infection. 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 You may resume your usual diet and activity. Please schedule an appointment with your primary care physician, Dr. Cox, this week. If you develop fever, chills, shortness of breath, please call his office or return to the ER. Referrals: Darrin Cox MD [Primary Care Provider] - 1 Week Disposition: HOME - Home Medications Comprehensive Discharge Medication List: Ambulatory Orders Atorvastatin Ca [Lipitor] 10 mg PO HS #30 tablet 11/24/16 Losartan 50Mg/Hctz 12.5MG [Hyzaar -] 1 tab PO DAILY 11/28/17 Oseltamivir Phosphate [Tamiflu -] 30 mg PO BID #6 capsule 12/01/17 This patient is new to me today: No Emergency Visit: Yes ED Registration Date: 11/28/17 Care time: The patient presented to the Emergency Department on the above date and was hospitalized for further evaluation of their emergent condition. Critical Care patient: No - Discharge Referral Referred to [facility] Med P.C.: No
== END 2017-12-01 15:35 | disposition home or self-care (01) | DRG 683 ==
LOC: JER 18:35 → JERBED 21:54 → J4W 11-29 02:04
PROVIDERS: ADMIT Internal Medicine; ATTEND Internal Medicine
DX: N17.9 Acute kidney failure, unspecified (principal); N39.0 Urinary tract infection, site not specified; E87.1 Hypo-osmolality and hyponatremia; I95.9 Hypotension, unspecified; J44.9 Chronic obstructive pulmonary disease, unspecified; E78.5 Hyperlipidemia, unspecified; I10 Essential (primary) hypertension; E11.9 Type 2 diabetes mellitus without complications; M81.0 Age-related osteoporosis without current pathological fracture; E86.0 Dehydration; Z87.891 Personal history of nicotine dependence; J10.1 Influenza due to other identified influenza virus with other respiratory manifestations
CPT/HCPCS: 36415; 71045-TC-FY; 76775-TC; 80048; 80053; 81003; 81015; 82436; 82803; 82962; 83036; 83605; 83735; 83930; 83935; 84100; 84133; 84300; 84484; 85025; 85610; 85730; 87040; 87086; 87804; 87899; 93005; 93010; 99285-25; J1644; J7030

== ENCOUNTER 2018-02-08 06:41 | Observation (INO) | payer BC, OTHER ==
[2018-02-08 07:12] VITALS: BMI 22.9
--- NOTE | 2018-02-08 07:17 | PDOC ---
Attending Attestation - Resident Resident Name: Ivan Chacko - ED Attending Attestation I have performed the following: I have examined & evaluated the patient, The case was reviewed & discussed with the resident, I agree w/resident's findings & plan, Exceptions are as noted - Medical Decision Making 02/08/18 07:17 I, Dr. Shamika Borges, DO, attest that this document has been prepared under my direction and personally reviewed by me in its entirety. I further attest, that it accurately reflects all work, treatment, procedures and medical decision -making performed by me. 02/08/18 08:27 a/p: 77yo female with palpitations and substernal cp assoc with sob this AM -no radiation -lasted 30 min -hx of htn, hld, smoking -no pain at this time -took asa at home -will check labs, ekg, cxr, tsh -no recent travel -no leg swelling, calf cramping, no pleuritic chest pain <Shamika Borges - Last Filed: 02/08/18 08:27> - HPI HPI: 02/08/18 09:38 The patient is a 77 year old female with a past medical history of DM, HTN, HLD , tobacco abuse (0.25 packs per day) who presents to the Emergency Department today with chest pain and palpitations that woke her up from sleep this morning. She says the pain has now improved but has not resolved. She describes her pain as mid-sternal and non-radiating. She endorses exacerbated pain with inspiration and palpitations. She denies associated shortness of breath and diaphoresis. She denies fever, chills, nausea, and diarrhea. She denies leg swelling, recent travel, history of blood clots. She denies recent increases in physical activities. She states that she took 1 baby aspirin at home in 2 while in the ED. - Physicial Exam PE: 02/08/18 09:39 GENERAL: Awake, alert, and fully oriented, in no acute distress HEAD: No signs of trauma EYES: PERRLA, EOMI, sclera anicteric, conjunctiva clear ENT: Auricles normal inspection, hearing grossly normal, nares patent, oropharynx clear without exudates. Moist mucosa NECK: Normal ROM, supple, no lymphadenopathy, JVD, or masses LUNGS: Breath sounds equal, clear to auscultation bilaterally. No wheezes, and no crackles HEART: (+) Reproducible mid-sternal chest tenderness on palpation. Regular rate and rhythm, normal S1 and S2, no murmurs, rubs or gallops ABDOMEN: Soft, nontender, normoactive bowel sounds. No guarding, no rebound. No masses EXTREMITIES: Normal range of motion, no edema. No clubbing or cyanosis. No cords, erythema, or tenderness NEUROLOGICAL: Cranial nerves II through XII grossly intact. Normal speech, normal gait SKIN: Warm, Dry, normal turgor, no rashes or lesions noted. - Medical Decision Making 02/08/18 09:39 Documentation prepared by Lloyd Medina, acting as medical technician assistant for Shamika Borges DO. <Lloyd Medina - Last Filed: 02/08/18 09:39> Heart Score/ECG Review - ECG Intrepretation Comment:: 02/08/18 08:36 sinus at 75, nl axis, nl interval, t wave inversions V2 and Avl which are unchanged from prior ekg in november 2017 <Shamika Borges - Last Filed: 02/08/18 08:27>
[2018-02-08] MEDS ORDERED: ASPIRIN 81 MG CHEWABLE TABLETS PO ONE (07:25)
[2018-02-08] MEDS ORDERED: ASPIRIN 81 MG CHEWABLE TABLETS ONE (07:34)
--- NOTE | 2018-02-08 07:34 | PDOC ---
History of Present Illness - General Chief Complaint: Palpitations Stated Complaint: PALPITATIONS Time Seen by Provider: 02/08/18 07:07 History Source: Patient Exam Limitations: Language Barrier - History of Present Illness Initial Comments: 02/08/18 07:39 Patient is an 77F with history of DM, HTN, HLD, tobacco abuse here today complaining of chest pain and palpitations that woke her up from sleep this morning. She says the pain has now improved but has not resolved. Denies associated shortness of breath. Patient endorses increased pain with palpation and inspiration. Patient denies leg swelling, recent travel, history of blood clots. Patient denies fevers, chills, nausea, vomiting and shortness of breath. Denies recent increases in physical activities. 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 Past History - Past Medical History Allergies/Adverse Reactions: Allergies Allergy/AdvReac Type Severity Reaction Status Date / Time No Known Allergies Allergy Verified 02/08/18 08:20 Home Medications: Ambulatory Orders Atorvastatin Ca [Lipitor] 10 mg PO HS #30 tablet 11/24/16 Losartan 50Mg/Hctz 12.5MG [Hyzaar -] 1 tab PO DAILY 11/28/17 Cardiac Disorders: Yes COPD: No Diabetes: Yes HTN: Yes Hypercholesterolemia: Yes - Suicide/Smoking/Psychosocial Hx Smoking History: Never smoked Have you smoked in the past 12 months: No Number of Cigarettes Smoked Daily: 3 Information on smoking cessation initiated: No 'Breaking Loose' booklet given: 11/23/16 Hx Alcohol Use: No Drug/Substance Use Hx: No Substance Use Type: None Hx Substance Use Treatment: No Review of Systems - Review of Systems Able to Perform ROS?: Yes Comments:: 02/08/18 07:41 GENERAL/CONSTITUTIONAL: No fever or chills. No weakness. HEAD, EYES, EARS, NOSE AND THROAT: No change in vision. No sore throat. CARDIOVASCULAR: Positive for chest pain. Negative for shortness of breath RESPIRATORY: No cough, wheezing, or hemoptysis. GASTROINTESTINAL: No nausea, vomiting, diarrhea or constipation. GENITOURINARY: No dysuria, frequency, or change in urination. MUSCULOSKELETAL: No joint or muscle swelling or pain. No neck or back pain. SKIN: No rash NEUROLOGIC: No headache, vertigo, loss of consciousness, or change in strength/ sensation. HEMATOLOGIC/LYMPHATIC: No anemia, easy bleeding, or history of blood clots. ALLERGIC/IMMUNOLOGIC: No hives or skin allergy. *Physical Exam - Vital Signs Last Vital Signs Temp Pulse Resp BP Pulse Ox 97.7 F 81 19 134/66 99 02/08/18 07:09 02/08/18 07:09 02/08/18 07:09 02/08/18 07:09 02/08/18 07:46 - Physical Exam Comments: 02/08/18 07:43 GENERAL: Awake, alert, and fully oriented, in no acute distress HEAD: No signs of trauma, normocephalic, atraumatic EYES: PERRLA, EOMI, sclera anicteric, conjunctiva clear ENT: Auricles normal inspection, hearing grossly normal, nares patent, oropharynx clear without exudates. Moist mucosa NECK: Normal ROM, supple, no lymphadenopathy, JVD, or masses LUNGS: No distress, speaks full sentences, clear to auscultation bilaterally HEART: Regular rate and rhythm, normal S1 and S2, no murmurs, rubs or gallops, peripheral pulses normal and equal bilaterally. ABDOMEN: Soft, nontender, normoactive bowel sounds. No guarding, no rebound. No masses EXTREMITIES: Normal inspection, Normal range of motion, no edema. No clubbing or cyanosis. NEUROLOGICAL: Cranial nerves II through XII grossly intact. Normal speech, no focal sensorimotor deficits SKIN: Warm, Dry, normal turgor, no rashes or lesions noted. Heart Score/ECG Review - History History: Slightly suspicious - Electrocardiogram EKG: Non specific repolarization disturbance - Age Age: >/= 65 - Risk Factors Risk Factors Heart Score: Yes Hx Hypercholesterolemia, Yes Hx Hypertension, Yes Hx Diabetes Based on the list above the patient has:: >/=3 risk factors or Hx atherosclerotic disease - Troponin Troponin: </= normal limit - Score Heart Score - Total: 5 ED Treatment Course - LABORATORY CBC & Chemistry Diagram: 02/08/18 07:30 02/08/18 07:30 - ADDITIONAL ORDERS Additional order review: Laboratory Results 02/08/18 02/08/18 07:30 07:30 PT with INR 11.40 INR 1.01 Sodium 135 L Potassium 4.8 Chloride 101 Carbon Dioxide 27 Anion Gap 7 L BUN 28 H Creatinine 1.7 H Creat Clearance w eGFR 29.30 Random Glucose 85 Calcium 10.2 H Magnesium 2.2 Total Bilirubin 0.8 D AST 26 ALT 22 Alkaline Phosphatase 69 Creatine Kinase 176 Troponin I < 0.02 Total Protein 7.6 Albumin 3.9 02/08/18 07:30 RBC 4.18 MCV 91.6 MCHC 33.8 RDW 13.4 MPV 6.5 L Neutrophils % 43.6 Lymphocytes % 45.8 H Monocytes % 7.0 Eosinophils % 2.5 D Basophils % 1.1 - RADIOLOGY Radiology Studies Ordered: Category Date Time Status CHEST X-RAY PORTABLE* [RAD] Stat Radiology 02/08/18 07:26 Completed - Medications Given in the ED: ED Medications Discontinued Medications Generic Name Dose Route Start Last Admin Trade Name Freq PRN Reason Stop Dose Admin Aspirin 162 mg 02/08/18 07:25 02/08/18 07:35 Asa - PO 02/08/18 07:26 162 mg ONCE ONE Administration Medical Decision Making - Medical Decision Making 02/08/18 07:43 Patient is 77F with history of HTN, HLD, DM, and tobacco abuse here today with chest pain. Vital signs stable, O2 sat of 9 is in error. DDx includes, but is not limited to: ACS, arrhythmia, costcochondritis. Do not suspect PE at this time given history and physical. Will do cardiac workup. Will give patient aspirin. While symptoms are atypical, patient does have multiple risk factors and a baseline HEART score of 4. Likely admit. 02/08/18 08:28 EKG shows normal sinus rhythm with rate of 75. EKG shows apparent ST elevations in V4/5 without any reciprocal depressions. Inverted t wave in aVL. Both of these found on prior EKG from 11/28/17. Normal QRS/QTc/MS intervals 02/08/18 09:02 Laboratory Tests 12/01/17 02/08/18 02/08/18 06:57 07:30 07:30 WBC 5.9 Hgb 13.0 Plt Count 293 Creatinine 1.1 H 1.7 H Troponin I < 0.02 CBC normal. Cr shows evidence of RIGOBERTO, given 500cc of fluids. Troponin undetectable. HEART score 5. Will obs tele. 02/08/18 09:04 CXR shows no acute cardiopulmonary process. 02/08/18 09:25 Obs tele via [facility]. *DC/Admit/Observation/Transfer Diagnosis at time of Disposition: Chest pain - Discharge Dispostion Condition at time of disposition: Stable Decision to Admit order: Yes Decision to Admit order Date/Time: Decision to Admit Order Category Date Time Status Decision to Admit to Hospital Routine Admission 02/08/18 09:25 Active - Referrals Referrals: Darrin Cox MD [Primary Care Provider] - - Patient Instructions - Post Discharge Activity
[2018-02-08 07:52] LABS: BASO % 1.1 % (0-2.0); EOS % 2.5 % (0-4.5); HEMATOCRIT 38.3 % (32.4-45.2); LYMPH % 45.8 % (8-40); MCHC 33.8 g/dl (32.0-36.0); MEAN CELL VOLUME 91.6 fl (80-96); MEAN PLT VOLUME 6.5 fl (7.5-11.1); NEUT % 43.6 % (42.8-82.8); PLATELET COUNT 293 K/MM3 (134-434); RBC 4.18 M/mm3 (3.60-5.2); RDW 13.4 % (11.6-15.6); WHITE BLOOD COUNT 5.9 K/mm3 (4.0-10.0)
[2018-02-08 08:13] LABS: INR 1.01 (0.82-1.09); PROTHROMBIN TIME (PATIENT) 11.4 SEC (9.7-13.0)
[2018-02-08 08:24] LABS: ALBUMIN 3.9 g/dl (3.4-5.0); ANION GAP 7 (8-16); BILIRUBIN,TOTAL 0.8 mg/dL (0.2-1.0); BLOOD UREA NITROGEN 28 mg/dL (7-18); CALCIUM 10.2 mg/dL (8.5-10.1); CHLORIDE 101 mmol/L (98-107); CO2 27 mmol/L (21-32); CREATININE 1.7 mg/dL (0.55-1.02); GLUCOSE,RANDOM 85 mg/dL (74-106); MAGNESIUM 2.2 mg/dL (1.8-2.4); POTASSIUM 4.8 mmol/L (3.5-5.1); SGOT/AST 26 U/L (15-37); SGPT/ALT 22 U/L (12-78); SODIUM 135 mmol/L (136-145); TOT PROT 7.6 g/dl (6.4-8.2)
[2018-02-08 08:28] LABS: ALK PHOS 69 U/L (45-117)
[2018-02-08] MEDS ORDERED: SODIUM CHLORIDE 500 ML IV STA (09:02)
[2018-02-08] MEDS ORDERED: ONDANSETRON 4 MG/2 ML VIAL IVPUSH PRN (09:31)
[2018-02-08] MEDS ORDERED: ACETAMINOPHEN 325 MG TABLET (FP) PO PRN (09:31)
[2018-02-08 10:35] LABS: BASO % 0.7 % (0-2.0); EOS % 0.8 % (0-4.5); HEMATOCRIT 37.9 % (32.4-45.2); HEMOGLOBIN 12.7 GM/dL (10.7-15.3); LYMPH % 37.6 % (8-40); MCH 30.7 pg (25.7-33.7); MCHC 33.4 g/dl (32.0-36.0); MEAN CELL VOLUME 91.9 fl (80-96); MEAN PLT VOLUME 6.9 fl (7.5-11.1); MONO % 4.5 % (3.8-10.2); NEUT % 56.4 % (42.8-82.8); PLATELET COUNT 284 K/MM3 (134-434); RBC 4.13 M/mm3 (3.60-5.2); RDW 13.7 % (11.6-15.6); WHITE BLOOD COUNT 6.3 K/mm3 (4.0-10.0)
[2018-02-08 10:50] LABS: INR 1.01 (0.82-1.09); PROTHROMBIN TIME (PATIENT) 11.4 SEC (9.7-13.0)
[2018-02-08 11:26] LABS: ANION GAP 7 (8-16); BILIRUBIN,TOTAL 0.8 mg/dL (0.2-1.0); BLOOD UREA NITROGEN 28 mg/dL (7-18); CALCIUM 10.3 mg/dL (8.5-10.1); CHLORIDE 101 mmol/L (98-107); CO2 27 mmol/L (21-32); CREATININE 1.6 mg/dL (0.55-1.02); GLUCOSE,RANDOM 81 mg/dL (74-106); MAGNESIUM 2.1 mg/dL (1.8-2.4); POTASSIUM 4.9 mmol/L (3.5-5.1); SGOT/AST 26 U/L (15-37); SGPT/ALT 21 U/L (12-78); SODIUM 135 mmol/L (136-145); TOT PROT 7.4 g/dl (6.4-8.2)
[2018-02-08 11:35] LABS: ALK PHOS 67 U/L (45-117)
--- NOTE | 2018-02-08 13:38 | HP ---
PCP: Darrin Cox CHIEF COMPLAINT: Chest pain HISTORY OF PRESENT ILLNESS: This is a 77 year old woman who comes to the ED complaining of chest pain and palpitations. She was awakened from sleep by the symptoms. Pain was worse with inspiration and did not radiate. She denies SOB, nausea, diaphoresis. She took baby aspirin at home before coming to the ED. Currently she has no pain. PAST MEDICAL HISTORY HTN Hyperlipidemia PAST SURGICAL HISTORY Denies Allergies No Known Allergies Allergy (Verified 02/08/18 08:20) Home Medications Medication Instructions Recorded Atorvastatin Ca [Lipitor] 10 mg PO HS #30 tablet 11/24/16 Losartan 50Mg/Hctz 12.5MG [Hyzaar 1 tab PO DAILY 11/28/17 -] Social History Smoking: Smokes several cigarettes per day Alcohol: Denies Drugs: Denies Recent Travel: No Family History Unremarkable REVIEW OF SYSTEMS CONSTITUTIONAL: Absent: fever, chills, diaphoresis, generalized weakness, malaise, loss of appetite, weight change HEENT: Absent: rhinorrhea, nasal congestion, throat pain, throat swelling, difficulty swallowing, mouth swelling, ear pain, eye pain, visual changes CARDIOVASCULAR: Present: chest pain, palpitations. Absent: syncope, lightheadedness, peripheral edema RESPIRATORY: Absent: cough, shortness of breath, dyspnea with exertion, orthopnea, wheezing, stridor, hemoptysis GASTROINTESTINAL: Absent: abdominal pain, abdominal distension, nausea, vomiting , diarrhea, constipation, melena, hematochezia GENITOURINARY: Absent: dysuria, frequency, urgency, hesitancy, hematuria, flank pain MUSCULOSKELETAL: Absent: myalgia, arthralgia, joint swelling, back pain, neck pain SKIN: Absent: rash, itching, pallor HEMATOLOGIC/IMMUNOLOGIC: Absent: easy bleeding, easy bruising, lymphadenopathy, frequent infections ENDOCRINE: Absent: unexplained weight gain, unexplained weight loss, heat intolerance, cold intolerance NEUROLOGIC: Absent: headache, focal weakness, paresthesias, dizziness, unsteady gait, seizure, mental status changes, bladder or bowel incontinence PSYCHIATRIC: Absent: anxiety, depression, suicidal or homicidal ideation, hallucinations. PHYSICAL EXAMINATION Vital Signs - 24 hr 02/08/18 02/08/18 02/08/18 07:09 07:46 10:49 Temperature 97.7 F 98.0 F Pulse Rate 81 Pulse Rate [ 82 Right] Respiratory 19 18 Rate Blood Pressure 134/66 Blood Pressure 128/77 [Right Arm] O2 Sat by Pulse 9 L 99 95 Oximetry (%) 02/08/18 12:28 Temperature 98.4 F Pulse Rate 83 Pulse Rate [ Right] Respiratory 18 Rate Blood Pressure 137/67 Blood Pressure [Right Arm] O2 Sat by Pulse 95 Oximetry (%) GENERAL: Awake, alert, and fully oriented, in no acute distress. HEAD: Normal with no signs of trauma. EYES: Pupils equal, round and reactive to light, extraocular movements intact, sclera anicteric, conjunctiva clear. EARS, NOSE, THROAT: Ears normal, nares patent, oropharynx clear without exudates. Moist mucous membranes. NECK: Normal range of motion, supple without lymphadenopathy, JVD, or masses. LUNGS: Breath sounds equal, clear to auscultation bilaterally. No wheezes, and no crackles. No accessory muscle use. HEART: Regular rate and rhythm, normal S1 and S2 without murmur, rub or gallop. ABDOMEN: Soft, nontender, not distended, normoactive bowel sounds, no guarding, no rebound, no masses. No hepatomegaly or splenomegaly. MUSCULOSKELETAL: Normal range of motion at all joints. No bony deformities or tenderness. No CVA tenderness. UPPER EXTREMITIES: 2+ pulses, warm, well-perfused. No cyanosis. No clubbing. No peripheral edema. LOWER EXTREMITIES: 2+ pulses, warm, well-perfused. No calf tenderness. No peripheral edema. NEUROLOGICAL: Cranial nerves II-XII intact. Normal speech. Gait not observed. PSYCHIATRIC: Cooperative. Good eye contact. Appropriate mood and affect. SKIN: Warm, dry, normal turgor, no rashes or lesions noted, normal capillary refill. Laboratory Results - last 24 hr 02/08/18 02/08/18 02/08/18 07:30 07:30 07:30 WBC 5.9 RBC 4.18 Hgb 13.0 Hct 38.3 MCV 91.6 MCH 31.0 MCHC 33.8 RDW 13.4 Plt Count 293 MPV 6.5 L Neutrophils % 43.6 Lymphocytes % 45.8 H Monocytes % 7.0 Eosinophils % 2.5 D Basophils % 1.1 Nucleated RBC % 0 PT with INR 11.40 INR 1.01 Sodium 135 L Potassium 4.8 Chloride 101 Carbon Dioxide 27 Anion Gap 7 L BUN 28 H Creatinine 1.7 H Creat Clearance w eGFR 29.30 Random Glucose 85 Calcium 10.2 H Magnesium 2.2 Total Bilirubin 0.8 D AST 26 ALT 22 Alkaline Phosphatase 69 Creatine Kinase 176 Creatine Kinase Index 1.6 CK-MB (CK-2) 2.820 Troponin I < 0.02 Total Protein 7.6 Albumin 3.9 TSH 2.10 02/08/18 02/08/18 02/08/18 10:00 10:20 10:20 WBC 6.3 RBC 4.13 Hgb 12.7 Hct 37.9 MCV 91.9 MCH 30.7 MCHC 33.4 RDW 13.7 Plt Count 284 MPV 6.9 L Neutrophils % 56.4 D Lymphocytes % 37.6 Monocytes % 4.5 Eosinophils % 0.8 Basophils % 0.7 Nucleated RBC % 0 PT with INR 11.40 INR 1.01 Sodium 135 L Potassium 4.9 Chloride 101 Carbon Dioxide 27 Anion Gap 7 L BUN 28 H Creatinine 1.6 H Creat Clearance w eGFR 31.42 Random Glucose 81 Calcium 10.3 H Magnesium 2.1 Total Bilirubin 0.8 AST 26 ALT 21 Alkaline Phosphatase 67 Creatine Kinase 169 Creatine Kinase Index 1.6 CK-MB (CK-2) 2.708 Troponin I < 0.02 Total Protein 7.4 Albumin 4.0 TSH 1.45 ASSESSMENT/PLAN: This is a 77 year old woman with a history of HTN, hyperlipdemia, tobacco use who presents to the ED with chest pain and palpitations. 1. Chest pain - Observe on telemetry - Serial troponins - Echocardiogram - Aspirin - Cardiology consult 2. Acute kidney injury - Hold Cozaar, HCTZ - IV fluid - Monitor BUN, creatinine 3. Stage 3 CKD - Baseline creatinine 1.1 4. HTN - Hold Cozaar, HCTZ secondary to RIGOBERTO 5. Hyperlipidemia - Continue Lipitor 6. Nicotine dependence - Smoking cessation advised 7. Hyponatremia, mild - Likely secondary to HCTZ - HCTZ being held secondary to RIGOBERTO - Monitor electrolytes Visit type - Emergency Visit Emergency Visit: Yes ED Registration Date: 02/08/18 Care time: The patient presented to the Emergency Department on the above date and was hospitalized for further evaluation of their emergent condition. - New Patient This patient is new to me today: Yes Date on this admission: 02/08/18 - Critical Care Critical Care patient: No Hospitalist Screening - Colonoscopy Questionnaire Colonoscopy Questionnaire: Colonoscopy Questionnaire - Patient: 50 - 75 years old and never had a screening colonoscopy: No History of colon or rectal polyps, or CA: No History of IBD, Crohn's disease or UC: No History of abdominal radiation therapy as a child: No - Relative: 1 with colon or rectal CA, or polyps at age 60 or younger: No Colon or rectal CA diagnosed at age 45 or younger: No Multiple relatives with colon or rectal CA: No - Outcome: Screening Result: Negative Screen
[2018-02-08] MEDS: SODIUM CHLORIDE 1,000 ML IV SCH (14:04)
--- NOTE | 2018-02-08 16:56 | CON.CARD ---
Consult Consult Specialty:: Cardiology - History of Present Illness History of Present Illness: The patient is a 77 year old female with a past medical history of DM, HTN, HLD , tobacco abuse (0.25 packs per day) who presents to the Emergency Department today with chest pain and palpitations that woke her up from sleep this morning. She says the pain has now improved but has not resolved. She describes her pain as mid-sternal and non-radiating. She endorses exacerbated pain with inspiration and palpitations. She denies associated shortness of breath and diaphoresis. She denies fever, chills, nausea, and diarrhea. She denies leg swelling, recent travel, history of blood clots. She denies recent increases in physical activities. She states that she took 1 baby aspirin at home in 2 while in the ED. - History Source History Provided By: Patient, Medical Record - Past Medical History Cardio/Vascular: Yes: HTN, Hyperlipdemia - Alcohol/Substance Use Hx Alcohol Use: No - Smoking History Smoking history: Current some day smoker Have you smoked in the past 12 months: Yes Aproximately how many cigarettes per day: 3 Home Medications - Allergies Allergies/Adverse Reactions: Allergies Allergy/AdvReac Type Severity Reaction Status Date / Time No Known Allergies Allergy Verified 02/08/18 08:20 - Home Medications Home Medications: Ambulatory Orders Atorvastatin Ca [Lipitor] 10 mg PO HS #30 tablet 11/24/16 Losartan 50Mg/Hctz 12.5MG [Hyzaar -] 1 tab PO DAILY 11/28/17 Review of Systems - Review of Systems Constitutional: reports: No Symptoms Eyes: reports: No Symptoms HENT: reports: No Symptoms Neck: reports: No Symptoms Cardiovascular: reports: Chest Pain Gastrointestinal: reports: No Symptoms Genitourinary: reports: No Symptoms Breasts: reports: No Symptoms Reported Musculoskeletal: reports: No Symptoms Integumentary: reports: No Symptoms Neurological: reports: No Symptoms Endocrine: reports: No Symptoms Hematology/Lymphatic: reports: No Symptoms Psychiatric: reports: No Symptoms Vital Signs: Vital Signs Temperature 98.4 F 02/08/18 14:17 Pulse Rate 78 02/08/18 14:17 Respiratory Rate 18 02/08/18 16:53 Blood Pressure 134/66 02/08/18 14:17 O2 Sat by Pulse Oximetry (%) 95 05/26/18 16:53 Constitutional: Yes: Well Nourished, No Distress, Calm Eyes: Yes: WNL, Conjunctiva Clear, EOM Intact HENT: Yes: WNL, Atraumatic, Normocephalic Neck: Yes: WNL, Supple, Trachea Midline Respiratory: Yes: WNL, Regular, CTA Bilaterally Gastrointestinal: Yes: WNL, Normal Bowel Sounds Renal/: Yes: WNL Cardiovascular: Yes: WNL, Regular Rate and Rhythm Musculoskeletal: Yes: WNL Extremities: Yes: WNL Integumentary: Yes: WNL Neurological: Yes: WNL, Alert, Oriented ...Motor Strength: WNL Psychiatric: Yes: WNL, Alert, Oriented - Other Data Labs, Other Data: CBC, BMP 02/08/18 10:20 02/08/18 10:00 INR, PTT INR 1.01 (0.82-1.09) 02/08/18 10:20 Troponin, BNP 02/08/18 02/08/18 07:30 10:00 Troponin I < 0.02 < 0.02 Troponin, BNP 02/08/18 02/08/18 07:30 10:00 Troponin I < 0.02 < 0.02 Imaging - Results Chest X-ray: Image Reviewed (no i/e) EKG: Image Reviewed (sr early repol) Problem List - Problems (1) Chest pain Code(s): R07.9 - CHEST PAIN, UNSPECIFIED (2) RIGOBERTO (acute kidney injury) Code(s): N17.9 - ACUTE KIDNEY FAILURE, UNSPECIFIED (3) Anxiety and depression Code(s): F41.9 - ANXIETY DISORDER, UNSPECIFIED; F32.9 - MAJOR DEPRESSIVE DISORDER, SINGLE EPISODE, UNSPECIFIED (4) Atypical chest pain Code(s): R07.89 - OTHER CHEST PAIN (5) Back pain Code(s): M54.9 - DORSALGIA, UNSPECIFIED (6) Cough Code(s): R05 - COUGH (7) DM2 (diabetes mellitus, type 2) Code(s): E11.9 - TYPE 2 DIABETES MELLITUS WITHOUT COMPLICATIONS (8) Gastritis Code(s): K29.70 - GASTRITIS, UNSPECIFIED, WITHOUT BLEEDING (9) HTN (hypertension) Code(s): I10 - ESSENTIAL (PRIMARY) HYPERTENSION (10) Hyperlipidemia Code(s): E78.5 - HYPERLIPIDEMIA, UNSPECIFIED (11) Hyponatremia Code(s): E87.1 - HYPO-OSMOLALITY AND HYPONATREMIA (12) Hypotension Code(s): I95.9 - HYPOTENSION, UNSPECIFIED Qualifiers: Hypotension type: other hypotension type Qualified Code(s): I95.89 - Other hypotension (13) Hypoxia Code(s): R09.02 - HYPOXEMIA (14) Palpitations Code(s): R00.2 - PALPITATIONS (15) Precordial chest pain Code(s): R07.2 - PRECORDIAL PAIN (16) Smoker Code(s): F17.200 - NICOTINE DEPENDENCE, UNSPECIFIED, UNCOMPLICATED (17) UTI (urinary tract infection) Code(s): N39.0 - URINARY TRACT INFECTION, SITE NOT SPECIFIED Assessment/Plan cpsx htn hlp plan asa bb r/o mi echo mibi st
--- NOTE | 2018-02-08 17:33 | EKG ---
Test Reason : Blood Pressure : / mmHG Vent. Rate : 075 BPM Atrial Rate : 075 BPM P-R Int : 178 ms QRS Dur : 082 ms QT Int : 376 ms P-R-T Axes : 082 074 070 degrees QTc Int : 419 ms NORMAL SINUS RHYTHM BIATRIAL ENLARGEMENT ST ELEVATION, CONSIDER EARLY REPOLARIZATION ABNORMAL ECG WHEN COMPARED WITH ECG OF 28-NOV-2017 20:39, NO SIGNIFICANT CHANGE WAS FOUND Confirmed by RHETT POLLARD, SAKSHI ([id number]) on 02/08/2018 5:32:35 PM Referred By: Confirmed By:SAKSHI DELANEY MD
--- NOTE | 2018-02-08 17:33 | EKG ---
Test Reason : Blood Pressure : / mmHG Vent. Rate : 077 BPM Atrial Rate : 077 BPM P-R Int : 172 ms QRS Dur : 080 ms QT Int : 366 ms P-R-T Axes : 080 070 069 degrees QTc Int : 414 ms NORMAL SINUS RHYTHM ST ELEVATION, CONSIDER EARLY REPOLARIZATION BORDERLINE ECG WHEN COMPARED WITH ECG OF 28-NOV-2017 20:39, NO SIGNIFICANT CHANGE WAS FOUND Confirmed by RHETT POLLARD, SAKSHI ([id number]) on 02/08/2018 5:32:51 PM Referred By: Saeed DYER Confirmed By:SAKSHI DELANEY MD
[2018-02-08] MEDS: ATORVASTATIN CA 10 MG TABLET (FP) PO SCH (22:28)
--- NOTE | 2018-02-09 09:47 | PN ---
Progress Note, Physician History of Present Illness: The patient is a 77 year old female with a past medical history of DM, HTN, HLD , tobacco abuse (0.25 packs per day) who presents to the Emergency Department today with chest pain and palpitations that woke her up from sleep this morning. She says the pain has now improved but has not resolved. She describes her pain as mid-sternal and non-radiating. She endorses exacerbated pain with inspiration and palpitations. She denies associated shortness of breath and diaphoresis. She denies fever, chills, nausea, and diarrhea. She denies leg swelling, recent travel, history of blood clots. She denies recent increases in physical activities. She states that she took 1 baby aspirin at home in 2 while in the ED. - Current Medication List Current Medications: Active Medications Acetaminophen (Tylenol -) 650 mg PO Q4H PRN PRN Reason: PAIN Atorvastatin Calcium (Lipitor -) 10 mg PO HS [facility] Last Admin: 02/08/18 22:28 Dose: Not Given Sodium Chloride (Normal Saline -) 1,000 mls @ 75 mls/hr IV ASDIR [facility] Last Admin: 02/08/18 14:04 Dose: 75 mls/hr Ondansetron HCl (Zofran Injection) 4 mg IVPUSH Q6H PRN PRN Reason: NAUSEA - Objective Vital Signs: Vital Signs Temperature 98 F 02/09/18 06:00 Pulse Rate 75 02/09/18 06:00 Respiratory Rate 17 02/09/18 09:00 Blood Pressure 122/68 02/09/18 06:00 O2 Sat by Pulse Oximetry (%) 96 02/09/18 09:00 Eyes: Yes: WNL, Conjunctiva Clear, EOM Intact HENT: Yes: WNL, Atraumatic, Normocephalic Neck: Yes: WNL, Supple, Trachea Midline Cardiovascular: Yes: WNL, Regular Rate and Rhythm Respiratory: Yes: WNL, Regular, CTA Bilaterally Gastrointestinal: Yes: WNL, Normal Bowel Sounds Genitourinary: Yes: WNL Musculoskeletal: Yes: WNL Extremities: Yes: WNL Edema: No Integumentary: Yes: WNL Neurological: Yes: WNL, Alert, Oriented ...Motor Strength: WNL Psychiatric: Yes: WNL Labs: CBC, BMP 02/08/18 10:20 02/08/18 10:00 INR, PTT INR 1.01 (0.82-1.09) 02/08/18 10:20 Laboratory Tests 02/08/18 02/08/18 02/08/18 07:30 07:30 07:30 WBC 5.9 RBC 4.18 Hgb 13.0 Hct 38.3 MCV 91.6 MCH 31.0 MCHC 33.8 RDW 13.4 Plt Count 293 MPV 6.5 L Neutrophils % 43.6 Lymphocytes % 45.8 H Monocytes % 7.0 Eosinophils % 2.5 D Basophils % 1.1 Nucleated RBC % 0 PT with INR 11.40 INR 1.01 Sodium 135 L Potassium 4.8 Chloride 101 Carbon Dioxide 27 Anion Gap 7 L BUN 28 H Creatinine 1.7 H Creat Clearance w eGFR 29.30 Random Glucose 85 Calcium 10.2 H Magnesium 2.2 Total Bilirubin 0.8 D AST 26 ALT 22 Alkaline Phosphatase 69 Creatine Kinase 176 Creatine Kinase Index 1.6 CK-MB (CK-2) 2.820 Troponin I < 0.02 Total Protein 7.6 Albumin 3.9 TSH 2.10 02/08/18 02/08/18 02/08/18 10:00 10:20 10:20 WBC 6.3 RBC 4.13 Hgb 12.7 Hct 37.9 MCV 91.9 MCH 30.7 MCHC 33.4 RDW 13.7 Plt Count 284 MPV 6.9 L Neutrophils % 56.4 D Lymphocytes % 37.6 Monocytes % 4.5 Eosinophils % 0.8 Basophils % 0.7 Nucleated RBC % 0 PT with INR 11.40 INR 1.01 Sodium 135 L Potassium 4.9 Chloride 101 Carbon Dioxide 27 Anion Gap 7 L BUN 28 H Creatinine 1.6 H Creat Clearance w eGFR 31.42 Random Glucose 81 Calcium 10.3 H Magnesium 2.1 Total Bilirubin 0.8 AST 26 ALT 21 Alkaline Phosphatase 67 Creatine Kinase 169 Creatine Kinase Index 1.6 CK-MB (CK-2) 2.708 Troponin I < 0.02 Total Protein 7.4 Albumin 4.0 TSH 1.45 02/08/18 02/09/18 21:30 03:15 WBC RBC Hgb Hct MCV MCH MCHC RDW Plt Count MPV Neutrophils % Lymphocytes % Monocytes % Eosinophils % Basophils % Nucleated RBC % PT with INR INR Sodium Potassium Chloride Carbon Dioxide Anion Gap BUN Creatinine Creat Clearance w eGFR Random Glucose Calcium Magnesium Total Bilirubin AST ALT Alkaline Phosphatase Creatine Kinase Creatine Kinase Index CK-MB (CK-2) Troponin I < 0.02 < 0.02 Total Protein Albumin TSH Problem List - Problems (1) Chest pain Code(s): R07.9 - CHEST PAIN, UNSPECIFIED (2) RIGOBERTO (acute kidney injury) Code(s): N17.9 - ACUTE KIDNEY FAILURE, UNSPECIFIED (3) Anxiety and depression Code(s): F41.9 - ANXIETY DISORDER, UNSPECIFIED; F32.9 - MAJOR DEPRESSIVE DISORDER, SINGLE EPISODE, UNSPECIFIED (4) Atypical chest pain Code(s): R07.89 - OTHER CHEST PAIN (5) Back pain Code(s): M54.9 - DORSALGIA, UNSPECIFIED (6) Cough Code(s): R05 - COUGH (7) DM2 (diabetes mellitus, type 2) Code(s): E11.9 - TYPE 2 DIABETES MELLITUS WITHOUT COMPLICATIONS (8) Gastritis Code(s): K29.70 - GASTRITIS, UNSPECIFIED, WITHOUT BLEEDING (9) HTN (hypertension) Code(s): I10 - ESSENTIAL (PRIMARY) HYPERTENSION (10) Hyperlipidemia Code(s): E78.5 - HYPERLIPIDEMIA, UNSPECIFIED (11) Hyponatremia Code(s): E87.1 - HYPO-OSMOLALITY AND HYPONATREMIA (12) Hypotension Code(s): I95.9 - HYPOTENSION, UNSPECIFIED Qualifiers: Hypotension type: other hypotension type Qualified Code(s): I95.89 - Other hypotension (13) Hypoxia Code(s): R09.02 - HYPOXEMIA (14) Palpitations Code(s): R00.2 - PALPITATIONS (15) Precordial chest pain Code(s): R07.2 - PRECORDIAL PAIN (16) Smoker Code(s): F17.200 - NICOTINE DEPENDENCE, UNSPECIFIED, UNCOMPLICATED (17) UTI (urinary tract infection) Code(s): N39.0 - URINARY TRACT INFECTION, SITE NOT SPECIFIED Assessment/Plan cpsx htn hlp renal insufficiency plan asa bb r/o mi echo mibi st
[2018-02-09] MEDS: METOPROLOL TARTRATE 25 MG TABLET (FP) PO SCH ×2 (10:15→22:20)
[2018-02-09] MEDS: SODIUM CHLORIDE 1,000 ML IV SCH (10:16)
--- NOTE | 2018-02-09 16:17 | PN ---
Physical Exam: SUBJECTIVE: Patient seen and examined. No further chest pain or palpitations. OBJECTIVE: Vital Signs Period Temp Pulse Resp BP Sys/Watkins Pulse Ox Last 24 Hr 96.7 F-98.6 F 64-84 17-18 117-150/61-75 95-96 GENERAL: The patient is awake, alert, and fully oriented, in no acute distress. LUNGS: Breath sounds equal, clear to auscultation bilaterally, no wheezes, no crackles, no accessory muscle use. HEART: Regular rate and rhythm, S1, S2 without murmur, rub or gallop. ABDOMEN: Soft, nontender, nondistended, normoactive bowel sounds, no guarding, no rebound, no hepatosplenomegaly, no masses. EXTREMITIES: 2+ pulses, warm, well-perfused, no edema. Laboratory Results - last 24 hr 02/08/18 02/09/18 21:30 03:15 Troponin I < 0.02 < 0.02 Active Medications Generic Name Dose Route Start Last Admin Trade Name Freq PRN Reason Stop Dose Admin Acetaminophen 650 mg 02/08/18 09:31 Tylenol - PO Q4H PRN PAIN Atorvastatin Calcium 10 mg 02/08/18 22:00 02/08/18 22:28 Lipitor - PO Not Given HS ALLI Sodium Chloride 1,000 mls @ 75 mls/hr 02/08/18 09:45 02/09/18 10:16 Normal Saline - IV 75 mls/hr ASDIR ALLI Administration Metoprolol Tartrate 25 mg 02/09/18 10:00 02/09/18 10:15 Lopressor - PO 25 mg BID ALLI Administration Ondansetron HCl 4 mg 02/08/18 09:31 Zofran Injection IVPUSH Q6H PRN NAUSEA ASSESSMENT/PLAN: This is a 77 year old woman with a history of HTN, hyperlipdemia, tobacco use who presented to the ED with chest pain and palpitations. 1. Chest pain - Troponins negative - Echocardiogram - Continue aspirin, Lopressor - Cardiology consult appreciated - plan for nuclear stress 2. Acute kidney injury - Cozaar, HCTZ held - Continue IV fluid - Monitor BUN, creatinine 3. Stage 3 CKD - Baseline creatinine 1.1 4. HTN - Cozaar, HCTZ held secondary to RIGOBERTO - Lopressor started 5. Hyperlipidemia - Continue Lipitor 6. Nicotine dependence - Smoking cessation advised 7. Hyponatremia, mild - Likely secondary to HCTZ - HCTZ held secondary to RIGOBERTO - Monitor electrolytes 8. Hypercalcemia, mild - Likely secondary to HCTZ - HCTZ held secondary to RIGOBERTO - IV fluid - Monitor serum calcium Visit type - Emergency Visit Emergency Visit: Yes ED Registration Date: 02/08/18 Care time: The patient presented to the Emergency Department on the above date and was hospitalized for further evaluation of their emergent condition. - New Patient This patient is new to me today: No - Critical Care Critical Care patient: No - Discharge Referral Referred to [facility] No
[2018-02-09] MEDS: ATORVASTATIN CA 10 MG TABLET (FP) PO SCH (22:20)
[2018-02-10 07:05] LABS: ANION GAP 5 (8-16); BLOOD UREA NITROGEN 22 mg/dL (7-18); CALCIUM 9.6 mg/dL (8.5-10.1); CHLORIDE 107 mmol/L (98-107); CO2 28 mmol/L (21-32); CREATININE 1.2 mg/dL (0.55-1.02); GLUCOSE,RANDOM 86 mg/dL (74-106); POTASSIUM 4.6 mmol/L (3.5-5.1); SODIUM 140 mmol/L (136-145)
--- NOTE | 2018-02-10 08:43 | PN ---
Progress Note, Physician History of Present Illness: The patient is a 77 year old female with a past medical history of DM, HTN, HLD , tobacco abuse (0.25 packs per day) who presents to the Emergency Department today with chest pain and palpitations that woke her up from sleep this morning. She says the pain has now improved but has not resolved. She describes her pain as mid-sternal and non-radiating. She endorses exacerbated pain with inspiration and palpitations. She denies associated shortness of breath and diaphoresis. She denies fever, chills, nausea, and diarrhea. She denies leg swelling, recent travel, history of blood clots. She denies recent increases in physical activities. She states that she took 1 baby aspirin at home in 2 while in the ED. - Current Medication List Current Medications: Active Medications Acetaminophen (Tylenol -) 650 mg PO Q4H PRN PRN Reason: PAIN Atorvastatin Calcium (Lipitor -) 10 mg PO HS [facility] Last Admin: 02/09/18 22:20 Dose: Not Given Sodium Chloride (Normal Saline -) 1,000 mls @ 75 mls/hr IV ASDIR [facility] Last Admin: 02/09/18 10:16 Dose: 75 mls/hr Metoprolol Tartrate (Lopressor -) 25 mg PO BID [facility] Last Admin: 02/09/18 22:20 Dose: Not Given Ondansetron HCl (Zofran Injection) 4 mg IVPUSH Q6H PRN PRN Reason: NAUSEA - Objective Vital Signs: Vital Signs Temperature 98.5 F 02/10/18 06:00 Pulse Rate 71 02/10/18 06:00 Respiratory Rate 20 02/10/18 06:00 Blood Pressure 112/70 02/10/18 06:00 O2 Sat by Pulse Oximetry (%) 97 02/09/18 21:00 Eyes: Yes: WNL, Conjunctiva Clear, EOM Intact HENT: Yes: WNL, Atraumatic, Normocephalic Neck: Yes: WNL, Supple, Trachea Midline Cardiovascular: Yes: WNL, Regular Rate and Rhythm Respiratory: Yes: WNL, Regular, CTA Bilaterally Gastrointestinal: Yes: WNL, Normal Bowel Sounds Genitourinary: Yes: WNL Musculoskeletal: Yes: WNL Extremities: Yes: WNL Edema: No Integumentary: Yes: WNL Neurological: Yes: WNL, Alert, Oriented ...Motor Strength: WNL Psychiatric: Yes: WNL Labs: CBC, BMP 02/08/18 10:20 02/10/18 06:00 INR, PTT INR 1.01 (0.82-1.09) 02/08/18 10:20 Problem List - Problems (1) Chest pain Code(s): R07.9 - CHEST PAIN, UNSPECIFIED (2) RIGOBERTO (acute kidney injury) Code(s): N17.9 - ACUTE KIDNEY FAILURE, UNSPECIFIED (3) Anxiety and depression Code(s): F41.9 - ANXIETY DISORDER, UNSPECIFIED; F32.9 - MAJOR DEPRESSIVE DISORDER, SINGLE EPISODE, UNSPECIFIED (4) Atypical chest pain Code(s): R07.89 - OTHER CHEST PAIN (5) Back pain Code(s): M54.9 - DORSALGIA, UNSPECIFIED (6) Cough Code(s): R05 - COUGH (7) DM2 (diabetes mellitus, type 2) Code(s): E11.9 - TYPE 2 DIABETES MELLITUS WITHOUT COMPLICATIONS (8) Gastritis Code(s): K29.70 - GASTRITIS, UNSPECIFIED, WITHOUT BLEEDING (9) HTN (hypertension) Code(s): I10 - ESSENTIAL (PRIMARY) HYPERTENSION (10) Hyperlipidemia Code(s): E78.5 - HYPERLIPIDEMIA, UNSPECIFIED (11) Hyponatremia Code(s): E87.1 - HYPO-OSMOLALITY AND HYPONATREMIA (12) Hypotension Code(s): I95.9 - HYPOTENSION, UNSPECIFIED Qualifiers: Hypotension type: other hypotension type Qualified Code(s): I95.89 - Other hypotension (13) Hypoxia Code(s): R09.02 - HYPOXEMIA (14) Palpitations Code(s): R00.2 - PALPITATIONS (15) Precordial chest pain Code(s): R07.2 - PRECORDIAL PAIN (16) Smoker Code(s): F17.200 - NICOTINE DEPENDENCE, UNSPECIFIED, UNCOMPLICATED (17) UTI (urinary tract infection) Code(s): N39.0 - URINARY TRACT INFECTION, SITE NOT SPECIFIED Assessment/Plan cpsx htn hlp renal insufficiency plan asa bb r/o mi echo mibi st
--- NOTE | 2018-02-10 09:55 | PN ---
Progress Note, Physician Chief Complaint: AWAKE ALERT CHART REVIEWED STRESS TEST TOMORROW - Current Medication List Current Medications: Active Medications Acetaminophen (Tylenol -) 650 mg PO Q4H PRN PRN Reason: PAIN Atorvastatin Calcium (Lipitor -) 10 mg PO HS [facility] Last Admin: 02/09/18 22:20 Dose: Not Given Sodium Chloride (Normal Saline -) 1,000 mls @ 75 mls/hr IV ASDIR [facility] Last Admin: 02/09/18 10:16 Dose: 75 mls/hr Metoprolol Tartrate (Lopressor -) 25 mg PO BID [facility] Last Admin: 02/09/18 22:20 Dose: Not Given Ondansetron HCl (Zofran Injection) 4 mg IVPUSH Q6H PRN PRN Reason: NAUSEA - Objective Vital Signs: Vital Signs Temperature 98.5 F 02/10/18 06:00 Pulse Rate 71 02/10/18 06:00 Respiratory Rate 20 02/10/18 06:00 Blood Pressure 112/70 02/10/18 06:00 O2 Sat by Pulse Oximetry (%) 97 02/09/18 21:00 Constitutional: Yes: Mild Distress Eyes: Yes: WNL HENT: Yes: WNL Neck: Yes: WNL Cardiovascular: Yes: WNL Respiratory: Yes: WNL Gastrointestinal: Yes: WNL Genitourinary: Yes: WNL Musculoskeletal: Yes: WNL Extremities: Yes: WNL Edema: No Peripheral Pulses WNL: Yes Integumentary: Yes: WNL Wound/Incision: Yes: Clean/Dry Neurological: Yes: WNL ...Motor Strength: WNL Psychiatric: Yes: WNL Labs: CBC, BMP 02/08/18 10:20 02/10/18 06:00 INR, PTT INR 1.01 (0.82-1.09) 02/08/18 10:20 Problem List - Problems (1) Chest pain Code(s): R07.9 - CHEST PAIN, UNSPECIFIED (2) DM2 (diabetes mellitus, type 2) Code(s): E11.9 - TYPE 2 DIABETES MELLITUS WITHOUT COMPLICATIONS (3) HTN (hypertension) Code(s): I10 - ESSENTIAL (PRIMARY) HYPERTENSION (4) Hyperlipidemia Code(s): E78.5 - HYPERLIPIDEMIA, UNSPECIFIED (5) Smoker Code(s): F17.200 - NICOTINE DEPENDENCE, UNSPECIFIED, UNCOMPLICATED Assessment/Plan CHART REVIEWED AWAITING STRESS TEST TOMORROW LIPID CONTROL SMIKING CESSATION CARDIOLOGY FOLLOW UP
[2018-02-10] MEDS: METOPROLOL TARTRATE 25 MG TABLET (FP) PO SCH ×2 (10:15→22:01)
[2018-02-10] MEDS: ASPIRIN COATED 81 MG TABLET.EC PO SCH (11:31)
[2018-02-10] MEDS: SODIUM CHLORIDE 1,000 ML IV SCH (11:31)
[2018-02-10] MEDS: TIOTROPIUM BROMIDE 18 MCG CAPSULES IH SCH (13:32)
[2018-02-10] MEDS ORDERED: PT OWN MED DRAWER 7, Y5N ONE (15:22)
[2018-02-10] MEDS: ATORVASTATIN CA 10 MG TABLET (FP) PO SCH (22:01)
[2018-02-11] MEDS ORDERED: PT OWN MED DRAWER 7, Y5N ONE ×2 (13:19→14:04)
[2018-02-11] MEDS: ASPIRIN COATED 81 MG TABLET.EC PO SCH (13:38)
[2018-02-11] MEDS: METOPROLOL TARTRATE 25 MG TABLET (FP) PO SCH (13:38)
[2018-02-11] MEDS: SODIUM CHLORIDE 1,000 ML IV SCH (13:38)
[2018-02-11] MEDS: TIOTROPIUM BROMIDE 18 MCG CAPSULES IH SCH (13:38)
--- NOTE | 2018-02-11 14:48 | CON.PULM ---
Consult Consult Specialty:: PULM/CCM Referred by:: KAR Reason for Consultation:: Abnormal CT - History of Present Illness Chief Complaint: CP History of Present Illness: 77 F, significant smoking history (now 1/4 pack per day), DM, HTN, and HLD. Admitted via the ER due to chest pain and palpitations that woke her up from sleep this morning. No fever or chills. No hemoptysis. No overt history consistent with sleep apnea. No travel history or sick contacts. CT: diffuse emphysema / non-specific bilateral pulmonary nodules, the dominant lesions: 1.2 x 1.1 cm in the Left apex and a 1.2 x 0.9 cm LLL Patient reports that her PMD is Dr Cox and that she did have previous CT imaging several years ago. - History Source History Provided By: Patient Limitations to Obtaining History: Language Barrier - Past Medical History Cardio/Vascular: Yes: HTN, Hyperlipdemia Pulmonary: Yes: Other (active prolonged sm,o) - Alcohol/Substance Use Hx Alcohol Use: No - Smoking History Smoking history: Current some day smoker Have you smoked in the past 12 months: Yes Aproximately how many cigarettes per day: 3 Home Medications - Allergies Allergies/Adverse Reactions: Allergies Allergy/AdvReac Type Severity Reaction Status Date / Time No Known Allergies Allergy Verified 02/08/18 08:20 - Home Medications Home Medications: Ambulatory Orders Atorvastatin Ca [Lipitor] 10 mg PO HS #30 tablet 11/24/16 Losartan 50Mg/Hctz 12.5MG [Hyzaar -] 1 tab PO DAILY 11/28/17 Review of Systems - Review of Systems Constitutional: denies: Chills, Fever, Malaise, Night Sweats, Unintentional Wgt. Loss Eyes: reports: No Symptoms HENT: reports: No Symptoms Neck: reports: No Symptoms Cardiovascular: reports: Chest Pain. denies: Edema, Palpitations, Shortness of Breath Respiratory: reports: Cough. denies: Hemoptysis, Orthopnea, Snoring, SOB, SOB on Exertion, Wheezing Gastrointestinal: reports: No Symptoms Genitourinary: reports: No Symptoms Breasts: reports: No Symptoms Reported Musculoskeletal: reports: No Symptoms Integumentary: reports: No Symptoms Neurological: reports: No Symptoms Endocrine: reports: No Symptoms Hematology/Lymphatic: reports: No Symptoms Psychiatric: reports: No Symptoms Physical Exam Vital Sings: Vital Signs Temperature 98.0 F 02/11/18 09:00 Pulse Rate 56 L 02/11/18 09:00 Respiratory Rate 18 02/11/18 09:00 Blood Pressure 140/73 02/11/18 09:00 O2 Sat by Pulse Oximetry (%) 96 02/11/18 09:00 Constitutional: Yes: No Distress, Calm Eyes: Yes: WNL, Conjunctiva Clear, EOM Intact HENT: Yes: Atraumatic, Normocephalic Neck: Yes: Supple, Trachea Midline Cardiovascular: Yes: Regular Rate and Rhythm Respiratory: Yes: CTA Bilaterally. No: Accessory Muscle Use, Rales, Rhonchi, Stridor, Tachypnea, Wheezes ...Inspection: Yes: WNL ...Clubbing: No Gastrointestinal: Yes: Normal Bowel Sounds, Soft Renal/: Yes: WNL Musculoskeletal: Yes: WNL Extremities: Yes: WNL Edema: No Peripheral Pulses WNL: Yes Integumentary: Yes: WNL Neurological: Yes: WNL, Alert, Oriented ...Motor Strength: WNL Psychiatric: Yes: WNL, Alert, Oriented Labs: CBC, BMP 02/08/18 10:20 02/10/18 06:00 Imaging - Results Chest X-ray: Report Reviewed, Image Reviewed Cat Scan: Report Reviewed, Image Reviewed Problem List - Problems (1) Lung nodule, multiple Code(s): R91.8 - OTHER NONSPECIFIC ABNORMAL FINDING OF LUNG FIELD (2) Chest pain Code(s): R07.9 - CHEST PAIN, UNSPECIFIED (3) Anxiety and depression Code(s): F41.9 - ANXIETY DISORDER, UNSPECIFIED; F32.9 - MAJOR DEPRESSIVE DISORDER, SINGLE EPISODE, UNSPECIFIED (4) DM2 (diabetes mellitus, type 2) Code(s): E11.9 - TYPE 2 DIABETES MELLITUS WITHOUT COMPLICATIONS (5) HTN (hypertension) Code(s): I10 - ESSENTIAL (PRIMARY) HYPERTENSION (6) Hyperlipidemia Code(s): E78.5 - HYPERLIPIDEMIA, UNSPECIFIED (7) Smoker Code(s): F17.200 - NICOTINE DEPENDENCE, UNSPECIFIED, UNCOMPLICATED Assessment/Plan The patient reports that her PMD Dr Cox has performed CT imaging several years ago. I gave her a copy of the CT report and my information. If the findings on this current CT can be confirmed on her old CT, then further workup may not be needed. If the old CT reveals that the nodules are new or have enlarged, then PET/CT scan will be needed and a possible biopsy based on the results. No smoking was discussed in detail. PFTs as an outpatient. At this time, there is Pulmonary contraindication for D/C planning is her cardiac workup is negative. Will follow if she remains admitted. Thank you. Dr Parkinson
[2018-02-11 15:18] VITALS: BP 120/54; PULSE 70; TEMP 97.6
--- NOTE | 2018-02-11 15:26 | DS ---
Physical Examination Vital Signs: Vital Signs Temperature 97.6 F 02/11/18 14:17 Pulse Rate 70 02/11/18 14:17 Respiratory Rate 14 02/11/18 14:17 Blood Pressure 120/54 02/11/18 14:17 O2 Sat by Pulse Oximetry (%) 96 02/11/18 09:00 Constitutional: Yes: No Distress Eyes: Yes: WNL HENT: Yes: WNL Neck: Yes: WNL Cardiovascular: Yes: WNL Respiratory: Yes: WNL Gastrointestinal: Yes: WNL Musculoskeletal: Yes: WNL Extremities: Yes: WNL Edema: No Peripheral Pulses WNL: Yes Integumentary: Yes: WNL Wound/Incision: Yes: Clean/Dry Neurological: Yes: WNL ...Motor Strength: WNL Psychiatric: Yes: WNL Labs: CBC, BMP 02/08/18 10:20 02/10/18 06:00 Discharge Summary Reason For Visit: CHEST PAIN Current Active Problems Chest pain (Acute) Lung nodule, multiple (Acute) COPD Procedures: Principal: STRESS TEST/CT SCAN CHEST Hospital Course: ADMITTED FOR R/O CORONARY SYNDROME, STRESS TEST REVIEWED BY CARDIOLOGY AWAITING RESULTS CAN DISCHARGE HOME IF CLEARED BY CARDIOLOGY SPIRIVA STARTED FOR COPD SMOKING CESSATION D/W PATIENT AND PMD Condition: Stable - Instructions Diet, Activity, Other Instructions: SMOKING CESSATION CAN START NICOTINE PATCHES FOR NOW WILL D/W DR GAUTAM HER PMD FOR F/U. LOW SALT DIET SEE CARDIOLOGY DR DAWKINS Referrals: Darrin Gautam MD [Primary Care Provider] - Disposition: HOME - Home Medications Comprehensive Discharge Medication List: Ambulatory Orders Atorvastatin Ca [Lipitor] 10 mg PO HS #30 tablet 11/24/16 Acetaminophen [Tylenol .Regular Strength -] 650 mg PO Q4H PRN tablet 02/11/18 Aspirin Coated [Ecotrin -] 81 mg PO DAILY #30 tablet.ec 02/11/18 Metoprolol Tartrate [Lopressor -] 25 mg PO BID #60 tablet 02/11/18 Tiotropium [place] [Spiriva Respimat] 4 gm IH DAILY #1 mist.inhal 02/11/18 Tiotropium [place] [Spiriva] 1 puff IH DAILY cap 02/11/18
--- NOTE | 2018-02-11 15:31 | PN ---
Progress Note, Physician Chief Complaint: Pt A&Ox3; asymptomatic, but worried about "lung inflammation". History of Present Illness: Patient is a 77F with history of DM, HTN, HLD, tobacco abuse here today complaining of chest pain and palpitations that woke her up from sleep this morning. She says the pain has now improved but has not resolved. Denies associated shortness of breath. Patient endorses increased pain with palpation and inspiration. Patient denies leg swelling, recent travel, history of blood clots. Patient denies fevers, chills, nausea, vomiting and shortness of breath. Denies recent increases in physical activities. 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 - Current Medication List Current Medications: Active Medications Acetaminophen (Tylenol -) 650 mg PO Q4H PRN PRN Reason: PAIN Aspirin (Ecotrin -) 81 mg PO DAILY [facility] Last Admin: 02/11/18 13:38 Dose: 81 mg Atorvastatin Calcium (Lipitor -) 10 mg PO HS [facility] Last Admin: 02/10/18 22:01 Dose: 10 mg Sodium Chloride (Normal Saline -) 1,000 mls @ 75 mls/hr IV ASDIR [facility] Last Admin: 02/11/18 13:38 Dose: Not Given Metoprolol Tartrate (Lopressor -) 25 mg PO BID [facility] Last Admin: 02/11/18 13:38 Dose: 25 mg Ondansetron HCl (Zofran Injection) 4 mg IVPUSH Q6H PRN PRN Reason: NAUSEA Tiotropium [place] (Spiriva -) 1 puff IH DAILY [facility] Last Admin: 02/11/18 13:38 Dose: 1 puff - Objective Vital Signs: Vital Signs Temperature 97.6 F 02/11/18 14:17 Pulse Rate 70 02/11/18 14:17 Respiratory Rate 14 02/11/18 14:17 Blood Pressure 120/54 02/11/18 14:17 O2 Sat by Pulse Oximetry (%) 96 02/11/18 09:00 Constitutional: Yes: Calm Labs: CBC, BMP 02/08/18 10:20 02/10/18 06:00 INR, PTT INR 1.01 (0.82-1.09) 02/08/18 10:20 Problem List - Problems (1) Lung nodule, multiple Code(s): R91.8 - OTHER NONSPECIFIC ABNORMAL FINDING OF LUNG FIELD (2) Anxiety and depression Code(s): F41.9 - ANXIETY DISORDER, UNSPECIFIED; F32.9 - MAJOR DEPRESSIVE DISORDER, SINGLE EPISODE, UNSPECIFIED (3) Atypical chest pain Assessment/Plan: Stress MIBI today: no myocardial ischemia. From cardiac perspective, pt may be discharged home and followed as an outpatient. Code(s): R07.89 - OTHER CHEST PAIN (4) DM2 (diabetes mellitus, type 2) Assessment/Plan: Consider ACEI or ARB with improved renal function (for DM, HTN). Code(s): E11.9 - TYPE 2 DIABETES MELLITUS WITHOUT COMPLICATIONS (5) HTN (hypertension) Code(s): I10 - ESSENTIAL (PRIMARY) HYPERTENSION (6) Hyperlipidemia Code(s): E78.5 - HYPERLIPIDEMIA, UNSPECIFIED
[2018-02-11 17:34] LABS: CHOLESTEROL 162 mg/dL (50-200); HDL CHOLESTEROL 56 mg/dL (40-60); TRIGLYCERIDES 101 mg/dL (35-160)
== END 2018-02-11 17:40 | disposition home or self-care (01) ==
LOC: JER 06:41 → JERBED 09:25 → J4S 11:30
PROVIDERS: ADMIT Internal Medicine; ATTEND Family Medicine
PROC: 3E0337Z Introduction of Electrolytic and Water Balance Substance into Peripheral Vein, Percutaneous Approach (ICD-10-PCS; principal; 2018-02-08)
PROC: 3E0F7GC Introduction of Other Therapeutic Substance into Respiratory Tract, Via Natural or Artificial Opening (ICD-10-PCS; 2018-02-08)
DX: R07.89 Other chest pain (principal); E11.22 Type 2 diabetes mellitus with diabetic chronic kidney disease; I12.9 Hypertensive chronic kidney disease with stage 1 through stage 4 chronic kidney disease, or unspecified chronic kidney disease; N18.3 Chronic kidney disease, stage 3 (moderate); N17.9 Acute kidney failure, unspecified; E78.5 Hyperlipidemia, unspecified; F17.200 Nicotine dependence, unspecified, uncomplicated; F41.9 Anxiety disorder, unspecified; F32.9 Major depressive disorder, single episode, unspecified; M54.9 Dorsalgia, unspecified; R05 Cough; K29.70 Gastritis, unspecified, without bleeding; E87.1 Hypo-osmolality and hyponatremia; I95.9 Hypotension, unspecified; R09.02 Hypoxemia; R00.2 Palpitations; N39.0 Urinary tract infection, site not specified; R91.8 Other nonspecific abnormal finding of lung field
CPT/HCPCS: 36415; 71045-TC-FY; 71250-TC; 78452-TC; 80048; 80053; 80061; 82550; 82553; 83721; 83735; 84443; 84484; 85025; 85610; 93005; 93010; 93017; 93306-TC; 94640; 96360; 99285-25; A9502; C1887; G0378; J7030

== ENCOUNTER 2021-06-16 16:44 | Inpatient (IN) | payer MEDICARE, OTHER ==
[2021-06-16 16:57] VITALS: BMI 22.4
[2021-06-16] MEDS ORDERED: methylPREDNISolone NA SUCC 125 MG/2 ML VIAL IVPB ONE (20:43)
[2021-06-16] MEDS ORDERED: LEVALBUTEROL HCL 0.63 MG/3 ML VIAL.NEB. IH ONE (20:45)
[2021-06-16] MEDS ORDERED: methylPREDNISolone NA SUCC 125 MG/2 ML VIAL ONE (20:57)
[2021-06-16 21:19] LABS: HEMOGLOBIN 15.5 GM/dL (10.7-15.3); MCH 30.9 pg (25.7-33.7); MEAN PLT VOLUME 6.9 fl (7.5-11.1)
[2021-06-16 21:24] LABS: BASO % 0.2 % (0-2.0); EOS % 1.1 % (0-4.5); HEMATOCRIT 45.6 % (32.4-45.2); LYMPH % 37.2 % (8-40); MEAN CELL VOLUME 90.8 fl (80-96); MONO % 6.4 % (3.8-10.2); NEUT % 55.1 % (42.8-82.8); PLATELET COUNT 271 10^3/uL (134-434); RBC 5.02 M/mm3 (3.60-5.2); RDW 13.7 % (11.6-15.6)
[2021-06-16] MEDS ORDERED: SODIUM CHLORIDE 0.9% 500 ML INFUS.BAG IV ONE (21:25)
[2021-06-16 21:27] LABS: INR 0.98 (0.83-1.09)
[2021-06-16 21:29] LABS: ACTIVATED PTT 32.1 SECONDS (25.2-36.5)
[2021-06-16 21:42] LABS: CHLORIDE 103 mmol/L (98-107); SODIUM 137 mmol/L (136-145)
[2021-06-16 21:46] LABS: ALBUMIN 4.3 g/dl (3.4-5.0); ANION GAP 6 MMOL/L (8-16); BLOOD UREA NITROGEN 22.5 mg/dL (7-18); CALCIUM 9.7 mg/dL (8.5-10.1); CO2 28 mmol/L (21-32)
[2021-06-16 21:47] LABS: GLUCOSE,RANDOM 94 mg/dL (74-106)
[2021-06-16 21:49] LABS: SGOT/AST 27 U/L (15-37); SGPT/ALT 29 U/L (13-61)
[2021-06-16 21:50] LABS: CREATININE 1.5 mg/dL (0.55-1.3)
[2021-06-16 21:51] LABS: TOT PROT 8.4 g/dl (6.4-8.2)
[2021-06-16 21:52] LABS: ALK PHOS 104 U/L (45-117)
[2021-06-16 21:54] LABS: N-TERMINAL BNP 592.4 pg/ml (5-450)
[2021-06-16] MEDS ORDERED: SODIUM BICARBONATE 8.4% 50 MEQ/50 ML DISP.SYRIN IVPUSH ONE (22:55)
[2021-06-16] MEDS ORDERED: DEXTROSE 50%-WATER - 25 GM/50 ML VIAL IVPUSH ONE ×2 (22:55→23:21)
[2021-06-16] MEDS ORDERED: INSULIN REGULAR HUMAN 100 UNITS/ML *VIAL IVPUSH ONE (22:55)
[2021-06-16] MEDS ORDERED: DEXTROSE 50%-WATER 25 GM/50 ML DISP.SYRIN ONE (23:17)
[2021-06-16] MEDS ORDERED: SODIUM BICARBONATE 8.4% - 50 ML ONE (23:18)
[2021-06-17] MEDS ORDERED: LEVALBUTEROL HCL 0.63 MG/3 ML VIAL.NEB. IH PRN (03:56)
[2021-06-17] MEDS: HEPARIN NA (PORCINE) 5,000 UNITS/ML 1ML VIAL SQ SCH ×2 (05:35→14:07)
[2021-06-17 07:04] LABS: HEMOGLOBIN 14.8 GM/dL (10.7-15.3); MCH 31.3 pg (25.7-33.7); MCHC 34.4 g/dl (32.0-36.0); MEAN CELL VOLUME 90.8 fl (80-96); MEAN PLT VOLUME 7.4 fl (7.5-11.1); PLATELET COUNT 245 10^3/uL (134-434); RBC 4.74 M/mm3 (3.60-5.2); RDW 13.5 % (11.6-15.6)
[2021-06-17 07:47] LABS: CHOLESTEROL 163 mg/dL (50-200); HDL CHOLESTEROL 60 mg/dL (40-60); LDL CHOLESTEROL (ONLY SJRH) 91 mg/dL (5-100); TRIGLYCERIDES 46 mg/dL (0-150)
[2021-06-17 07:53] LABS: CREATININE 1.3 mg/dL (0.55-1.3)
[2021-06-17 07:54] LABS: ALBUMIN 3.9 g/dl (3.4-5.0); BILIRUBIN,TOTAL 1.1 mg/dL (0.2-1); CALCIUM 9.5 mg/dL (8.5-10.1); MAGNESIUM 1.9 mg/dL (1.8-2.4); PHOSPHOROUS 4.2 mg/dL (2.5-4.9); TOT PROT 7.5 g/dl (6.4-8.2); URIC ACID 5.9 mg/dL (2.6-7.2)
[2021-06-17] MEDS ORDERED: methylPREDNISolone NA SUCC 40 MG/1 ML VIAL IVPUSH SCH (08:00)
[2021-06-17] MEDS ORDERED: ASPIRIN 81 MG CHEWABLE TABLETS ONE (09:46)
[2021-06-17] MEDS ORDERED: predniSONE 20 MG TABLET (UD) ONE (09:47)
[2021-06-17] MEDS ORDERED: METOPROLOL TARTRATE 25 MG TABLET (FP) ONE (09:48)
[2021-06-17] MEDS ORDERED: AZITHROMYCIN 500 MG TABLET PO SCH (10:00)
[2021-06-17] MEDS ORDERED: ASPIRIN 81 MG CHEWABLE TABLETS PO SCH (10:00)
[2021-06-17] MEDS ORDERED: BUDESONIDE/FORMETEROL FUMARATE 160/4.5 mcg INHALER IH SCH (10:00)
[2021-06-17] MEDS ORDERED: predniSONE 20 MG TABLET (UD) PO SCH (10:00)
[2021-06-17] MEDS ORDERED: METOPROLOL TARTRATE 25 MG TABLET (FP) PO SCH (10:00)
[2021-06-17] MEDS ORDERED: NICOTINE 14 MG/24 HOURS TOPICAL PATCH TD SCH (10:00)
[2021-06-17] MEDS ORDERED: SODIUM CHLORIDE 1,000 ML IV SCH (11:00)
[2021-06-17 12:19] LABS: EPI CELLS 11 /uL (0-25.1); HYALINE CASTS 1 /uL (0-3.1); URINE APPEARANCE CLEAR; URINE BACTERIA 149 /uL (0-1359); URINE BILIRUBIN NEGATIVE (NEGATIVE); URINE COLOR YELLOW; URINE GLUCOSE (UA) NEGATIVE (NEGATIVE); URINE KETONE NEGATIVE (NEGATIVE); URINE LEUK ESTERASE NEGATIVE (NEGATIVE); URINE NITRITE NEGATIVE (NEGATIVE); URINE PROTEIN 2+ (NEGATIVE); URINE RBC 18 /uL (0-23.9); URINE WBC 4 /uL (0-25.8)
[2021-06-17] MEDS ORDERED: HEPARIN NA (PORCINE) 5,000 UNITS/ML 1ML VIAL ONE (14:02)
[2021-06-17 14:40] VITALS: BP 148/56; PULSE 78; TEMP 98
[2021-06-17] MEDS ORDERED: ATORVASTATIN CA 80 MG TABLET (FP) PO SCH (22:00)
[2021-06-17] MEDS ORDERED: amLODIPine BESYLATE 5 MG TABLET (FP) PO SCH (22:00)
[2021-06-17] MEDS ORDERED: ROSUVASTATIN CA 10 MG TABLET (FP) PO SCH (22:00)
== END 2021-06-18 07:30 | disposition home or self-care (01) | DRG 192 ==
LOC: JER 16:44 → JERBED 23:36
PROVIDERS: ADMIT Internal Medicine; ATTEND Internal Medicine
DX: J44.1 Chronic obstructive pulmonary disease with (acute) exacerbation (principal); E78.5 Hyperlipidemia, unspecified; I12.9 Hypertensive chronic kidney disease with stage 1 through stage 4 chronic kidney disease, or unspecified chronic kidney disease; N18.9 Chronic kidney disease, unspecified; E87.5 Hyperkalemia; F41.8 Other specified anxiety disorders; F17.210 Nicotine dependence, cigarettes, uncomplicated; R07.89 Other chest pain
CPT/HCPCS: 36415; 71046-TC-FY; 76775-TC; 80053; 80061; 81003; 82550; 83735; 83880; 84100; 84132; 84443; 84484; 84550; 85025; 85027; 85610; 85730; 86850; 86900; 86901; 93005; 93010; 99285-25; C9803; J1644; U0003; U0005

== ENCOUNTER 2021-11-27 08:34 | Emergency (ER) | payer MEDICARE, OTHER ==
[2021-11-27 08:42] VITALS: BP 152/53; PULSE 68; TEMP 97.5; BMI 23.8
[2021-11-27] MEDS ORDERED: NAPROXEN 500 MG TABLET PO ONE (10:58)
[2021-11-27] MEDS ORDERED: NAPROXEN 500 MG TABLET ONE (11:27)
== END 2021-11-27 13:57 | disposition home or self-care (01) ==
LOC: JERFT 08:34
DX: M94.0 Chondrocostal junction syndrome [Tietze] (principal)
CPT/HCPCS: 71046-TC-FY; 71101-TC-LT-FY; 99283-25

== ENCOUNTER 2022-08-14 08:03 | Observation (INO) | payer OTHER ==
[2022-08-14 08:34] VITALS: BMI 21.5
[2022-08-14] MEDS ORDERED: ALBUTEROL SO4 2.5/IPRATROPIUM 0.5 INH SOL 3 ML VIAL.NEB. NEB ONE ×4 (10:04→12:21)
[2022-08-14 10:59] LABS: HEMATOCRIT 46.3 % (32.4-45.2); HEMOGLOBIN 15.2 GM/dL (10.7-15.3); MCHC 32.8 g/dl (32.0-36.0); MEAN CELL VOLUME 91.6 fl (80-96); MEAN PLT VOLUME 7.4 fl (7.5-11.1); PLATELET COUNT 315 10^3/uL (134-434); RBC 5.06 M/mm3 (3.60-5.2)
[2022-08-14 11:20] LABS: ACTIVATED PTT 38.3 SECONDS (25.2-36.5); INR 1.03 (0.83-1.09); PROTHROMBIN TIME (PATIENT) 11.9 SEC (9.7-13.0)
[2022-08-14 11:37] LABS: BLOOD UREA NITROGEN 33.4 mg/dL (7-18); CALCIUM 9.7 mg/dL (8.5-10.1)
[2022-08-14 11:40] LABS: CREATININE 1.5 mg/dL (0.55-1.3)
[2022-08-14 11:42] LABS: BILIRUBIN,TOTAL 1.2 mg/dL (0.2-1); TOT PROT 7.7 g/dl (6.4-8.2)
[2022-08-14 11:45] LABS: N-TERMINAL BNP 317.6 pg/ml (5-450)
[2022-08-14 12:43] LABS: ANISOCYTOSIS 0; MACROCYTOSIS 0
[2022-08-14] MEDS ORDERED: ASPIRIN 81 MG CHEWABLE TABLETS PO ONE (12:43)
[2022-08-14] MEDS ORDERED: ASPIRIN 81 MG CHEWABLE TABLETS ONE (12:52)
[2022-08-14] MEDS ORDERED: SODIUM CHLORIDE 1,000 ML IV SCH (14:30)
[2022-08-14] MEDS ORDERED: ALBUTEROL SO4 2.5/IPRATROPIUM 0.5 INH SOL 3 ML VIAL.NEB. NEB PRN (15:19)
[2022-08-14] MEDS ORDERED: HEPARIN NA (PORCINE) 5,000 UNITS/ML 1ML VIAL ONE ×2 (16:24→21:40)
[2022-08-14] MEDS: HEPARIN NA (PORCINE) 5,000 UNITS/ML 1ML VIAL SQ SCH ×2 (16:33→21:43)
[2022-08-14] MEDS ORDERED: amLODIPine BESYLATE 5 MG TABLET (FP) ONE (21:40)
[2022-08-14] MEDS ORDERED: amLODIPine BESYLATE 5 MG TABLET (FP) PO SCH (22:00)
[2022-08-15] MEDS ORDERED: HEPARIN NA (PORCINE) 5,000 UNITS/ML 1ML VIAL ONE (05:21)
[2022-08-15] MEDS: HEPARIN NA (PORCINE) 5,000 UNITS/ML 1ML VIAL SQ SCH (05:40)
[2022-08-15 08:43] LABS: HEMATOCRIT 43.3 % (32.4-45.2); HEMOGLOBIN 14.1 GM/dL (10.7-15.3); MCHC 32.6 g/dl (32.0-36.0); MEAN CELL VOLUME 91.9 fl (80-96); PLATELET COUNT 290 10^3/uL (134-434); RBC 4.71 M/mm3 (3.60-5.2); RDW 13.8 % (11.6-15.6); WHITE BLOOD COUNT 4.9 K/mm3 (4.0-10.0)
[2022-08-15 08:56] LABS: ALBUMIN 3.6 g/dl (3.4-5.0); BLOOD UREA NITROGEN 33.7 mg/dL (7-18); CALCIUM 9.2 mg/dL (8.5-10.1)
[2022-08-15 08:59] LABS: CREATININE 1.4 mg/dL (0.55-1.3)
[2022-08-15 09:01] LABS: TOT PROT 6.8 g/dl (6.4-8.2)
[2022-08-15 09:06] LABS: MAGNESIUM 1.9 mg/dL (1.8-2.4)
[2022-08-15 09:10] LABS: PHOSPHOROUS 3.8 mg/dL (2.5-4.9)
[2022-08-15] MEDS ORDERED: predniSONE 10 MG TABLET (UD) PO SCH (11:00)
[2022-08-15 14:44] VITALS: BP 134/80; PULSE 87; RESP 23; TEMP 98.2
== END 2022-08-15 17:00 | disposition home or self-care (01) ==
LOC: JER 08:03 → JERBED 13:17 → J6W 08-15 12:25
PROVIDERS: ADMIT Internal Medicine; ATTEND Internal Medicine
PROC: 3E0F7GC Introduction of Other Therapeutic Substance into Respiratory Tract, Via Natural or Artificial Opening (ICD-10-PCS; principal; 2022-08-14)
PROC: 3E023GC Introduction of Other Therapeutic Substance into Muscle, Percutaneous Approach (ICD-10-PCS; 2022-08-14)
PROC: 3E0337Z Introduction of Electrolytic and Water Balance Substance into Peripheral Vein, Percutaneous Approach (ICD-10-PCS; 2022-08-14)
DX: J44.1 Chronic obstructive pulmonary disease with (acute) exacerbation (principal); I25.10 Atherosclerotic heart disease of native coronary artery without angina pectoris; I11.9 Hypertensive heart disease without heart failure; F17.210 Nicotine dependence, cigarettes, uncomplicated
CPT/HCPCS: 0241U-QW; 36415; 71045-TC-FY; 80053; 80061; 83036; 83735; 83880; 84100; 84132; 84443; 84484; 85025; 85027; 85610; 85730; 93005; 93010; 93306-TC; 94640; 96372; 99285-25; G0378; J1644

== ENCOUNTER 2023-04-02 09:44 | Observation (INO) | payer OTHER ==
[2023-04-02 09:50] VITALS: BMI 21.5
[2023-04-02] MEDS: ALBUTEROL SO4 2.5/IPRATROPIUM 0.5 INH SOL 3 ML VIAL.NEB. NEB SCH ×3 (10:57→11:15)
[2023-04-02] MEDS ORDERED: ALBUTEROL SO4 2.5/IPRATROPIUM 0.5 INH SOL 3 ML VIAL.NEB. NEB ONE (10:58)
[2023-04-02 11:14] LABS: BASO % 1.4 % (0-2.0); EOS % 2.2 % (0-4.5); HEMATOCRIT 44.5 % (32.4-45.2); HEMOGLOBIN 14.8 GM/dL (10.7-15.3); LYMPH % 39.1 % (8-40); MCH 30.2 pg (25.7-33.7); MCHC 33.1 g/dl (32.0-36.0); MEAN PLT VOLUME 7.9 fl (7.5-11.1); NEUT % 49.3 % (42.8-82.8); PLATELET COUNT 290 10^3/uL (134-434); RBC 4.89 M/mm3 (3.60-5.2); RDW 13.6 % (11.6-15.6)
[2023-04-02 11:21] LABS: INR 1.02 (0.83-1.09); PROTHROMBIN TIME (PATIENT) 11.8 SEC (9.7-13.0)
[2023-04-02 11:24] LABS: ACTIVATED PTT 35.2 SECONDS (25.2-36.5)
[2023-04-02 11:33] LABS: POTASSIUM 4.9 mmol/L (3.5-5.1)
[2023-04-02 11:34] LABS: CALCIUM 9.9 mg/dL (8.5-10.1)
[2023-04-02 11:36] LABS: BLOOD UREA NITROGEN 28.7 mg/dL (7-18)
[2023-04-02 11:38] LABS: CREATININE 1.6 mg/dL (0.55-1.3)
[2023-04-02 11:40] LABS: BILIRUBIN,TOTAL 1.1 mg/dL (0.2-1); TOT PROT 7.4 g/dl (6.4-8.2)
[2023-04-02] MEDS ORDERED: ALBUTEROL SO4 HFA INHALER IH PRN (12:45)
[2023-04-02] MEDS ORDERED: amLODIPine BESYLATE 5 MG TABLET (FP) PO SCH (12:45)
[2023-04-02 15:44] LABS: N-TERMINAL BNP 342.1 pg/ml (5-450)
[2023-04-02] MEDS: INSULIN SLIDING SCALE (NOVOLOG) 1 VIAL SQ SCH ×2 (17:11→21:50)
[2023-04-02] MEDS: metoPROLOL SUCCINATE 25 MG TAB.SR.24H (FP) PO SCH (21:44)
[2023-04-02] MEDS: ROSUVASTATIN CA 10 MG TABLET PO SCH (21:44)
[2023-04-02] MEDS: BUDESONIDE/FORMETEROL FUMARATE 80/4.5 mcg INHALER IH SCH (21:45)
[2023-04-03] MEDS: INSULIN SLIDING SCALE (NOVOLOG) 1 VIAL SQ SCH ×4 (06:03→22:54)
[2023-04-03 07:52] LABS: HEMATOCRIT 43.8 % (32.4-45.2); HEMOGLOBIN 14.9 GM/dL (10.7-15.3); MCH 30.5 pg (25.7-33.7); MCHC 34.1 g/dl (32.0-36.0); MEAN CELL VOLUME 89.6 fl (80-96); MEAN PLT VOLUME 7.2 fl (7.5-11.1); PLATELET COUNT 251 10^3/uL (134-434); RBC 4.89 M/mm3 (3.60-5.2); RDW 13.6 % (11.6-15.6); WHITE BLOOD COUNT 5.9 K/mm3 (4.0-10.0)
[2023-04-03 08:14] LABS: POTASSIUM 5.1 mmol/L (3.5-5.1)
[2023-04-03 08:18] LABS: BLOOD UREA NITROGEN 30.7 mg/dL (7-18); CALCIUM 9.7 mg/dL (8.5-10.1)
[2023-04-03 08:19] LABS: MAGNESIUM 2.2 mg/dL (1.8-2.4)
[2023-04-03 08:21] LABS: CREATININE 1.5 mg/dL (0.55-1.3)
[2023-04-03] MEDS: LOSARTAN POTASSIUM 50 MG TABLET PO SCH (09:12)
[2023-04-03] MEDS: metoPROLOL SUCCINATE 25 MG TAB.SR.24H (FP) PO SCH ×2 (09:12→22:42)
[2023-04-03] MEDS: amLODIPine BESYLATE 5 MG TABLET (FP) PO SCH (09:12)
[2023-04-03] MEDS: BUDESONIDE/FORMETEROL FUMARATE 80/4.5 mcg INHALER IH SCH ×2 (09:13→22:42)
[2023-04-03] MEDS: predniSONE 20 MG TABLET (UD) PO SCH (15:59)
[2023-04-03] MEDS: TIOTROPIUM BROMIDE 2.5 MCG (SPIRIVA) RESPIMAT INHALER IH SCH (16:27)
[2023-04-03] MEDS: ROSUVASTATIN CA 10 MG TABLET PO SCH (22:42)
[2023-04-03] MEDS ORDERED: INSULIN (NOVOLOG) ASPART 100 UNITS/ML 10ML VIAL ONE (22:54)
[2023-04-04] MEDS: INSULIN SLIDING SCALE (NOVOLOG) 1 VIAL SQ SCH ×4 (06:24→23:23)
[2023-04-04] MEDS: LOSARTAN POTASSIUM 50 MG TABLET PO SCH (10:16)
[2023-04-04] MEDS: predniSONE 20 MG TABLET (UD) PO SCH (10:17)
[2023-04-04] MEDS: amLODIPine BESYLATE 5 MG TABLET (FP) PO SCH (10:17)
[2023-04-04] MEDS: BUDESONIDE/FORMETEROL FUMARATE 80/4.5 mcg INHALER IH SCH ×2 (10:17→23:12)
[2023-04-04] MEDS: TIOTROPIUM BROMIDE 2.5 MCG (SPIRIVA) RESPIMAT INHALER IH SCH (10:17)
[2023-04-04] MEDS: metoPROLOL SUCCINATE 25 MG TAB.SR.24H (FP) PO SCH ×2 (10:17→23:11)
[2023-04-04] MEDS: ROSUVASTATIN CA 10 MG TABLET PO SCH (23:11)
[2023-04-05] MEDS: INSULIN SLIDING SCALE (NOVOLOG) 1 VIAL SQ SCH ×2 (07:07→11:15)
[2023-04-05] MEDS: LOSARTAN POTASSIUM 50 MG TABLET PO SCH (09:20)
[2023-04-05] MEDS: amLODIPine BESYLATE 5 MG TABLET (FP) PO SCH (09:20)
[2023-04-05] MEDS: predniSONE 20 MG TABLET (UD) PO SCH (09:20)
[2023-04-05] MEDS: metoPROLOL SUCCINATE 25 MG TAB.SR.24H (FP) PO SCH (09:20)
[2023-04-05] MEDS: TIOTROPIUM BROMIDE 2.5 MCG (SPIRIVA) RESPIMAT INHALER IH SCH (09:22)
[2023-04-05] MEDS: BUDESONIDE/FORMETEROL FUMARATE 80/4.5 mcg INHALER IH SCH (09:22)
[2023-04-05] MEDS ORDERED: APIXABAN 5 MG TABLET PO SCH (13:00)
[2023-04-05 15:13] VITALS: BP 144/73; PULSE 78; RESP 18; TEMP 98.2
== END 2023-04-05 17:03 | disposition home or self-care (01) ==
LOC: JER 09:44 → JERBED 13:08 → J4W 20:10
PROVIDERS: ADMIT Internal Medicine; ATTEND Internal Medicine
PROC: 3E0F7GC Introduction of Other Therapeutic Substance into Respiratory Tract, Via Natural or Artificial Opening (ICD-10-PCS; principal; 2023-04-02)
PROC: 3E0F7GC Introduction of Other Therapeutic Substance into Respiratory Tract, Via Natural or Artificial Opening (ICD-10-PCS; 2023-04-02)
DX: R06.02 Shortness of breath (principal); I12.9 Hypertensive chronic kidney disease with stage 1 through stage 4 chronic kidney disease, or unspecified chronic kidney disease; J44.9 Chronic obstructive pulmonary disease, unspecified; E78.5 Hyperlipidemia, unspecified; N18.9 Chronic kidney disease, unspecified; Z72.0 Tobacco use
CPT/HCPCS: 36415; 71045-TC-FY; 78582-TC; 80048; 80053; 82962; 83735; 83880; 84443; 84484; 85025; 85027; 85379; 85610; 85730; 93005; 93010; 93970-TC; 94640; 99285-25; A9539; A9540; G0378

== ENCOUNTER 2025-03-18 11:14 | Emergency (ER) | payer OTHER ==
[2025-03-18 11:28] VITALS: RESP 16; BMI 20.3
[2025-03-18] MEDS ORDERED: ACETAMINOPHEN INJECTION 100 ML ONE (12:39)
[2025-03-18 12:45] LABS: ABSOLUTE IMMATURE GRANULOCYTES 0.01 x10^3/uL (0.0-0.031); BASOPHILS # 0.05 x10^3/uL (0.01-0.08); EOSINOPHIL % 2.1 % (0.7-5.8); EOSINOPHILS # 0.11 x10^3/uL (0.04-0.36); MCHC 30.9 g/dl (32.2-35.5); MEAN CELL VOLUME 96.2 fl (79.4-94.8); MEAN PLT VOLUME 8.6 fl (9.4-12.3); MONOCYTE # 0.52 x10^3/uL (0.24-0.86); MONOCYTE % 10.2 % (4.7-12.5); RDW 12.1 % (12.5-17.0)
[2025-03-18] MEDS: ACETAMINOPHEN 1000 MG/100 ML BAG IVPB ONE (12:48)
[2025-03-18 12:53] LABS: INR 1.05 (0.83-1.09); PROTHROMBIN TIME (PATIENT) 11.5 SEC (9.7-13.0)
[2025-03-18 12:56] LABS: ACTIVATED PTT 32.3 SECONDS (25.2-36.5)
[2025-03-18 13:05] LABS: CO2 26.0 mmol/L (21-32); GLUCOSE,RANDOM 105.0 mg/dL (74-106)
[2025-03-18 13:08] LABS: CREATININE 2.2 mg/dL (0.55-1.3); SGOT/AST 21.0 U/L (15-37); SGPT/ALT 26.0 U/L (13-61)
[2025-03-18 13:09] LABS: TOT PROT 7.7 g/dl (6.4-8.2)
[2025-03-18 13:11] LABS: ALK PHOS 71.0 U/L (45-117)
[2025-03-18] MEDS: SODIUM CHLORIDE 0.9% 500 ML INFUS.BAG IV ONE (13:53)
[2025-03-18 14:58] VITALS: BP 132/61; PULSE 64; TEMP 97.9
[2025-03-18 15:12] LABS: HCV DIAGNOSTIC IN-HOUSE W/RFLX NON-REACTIVE (NONREACTIVE); HIV INTERPRETATION NEGATIVE (NEGATIVE)
== END 2025-03-18 17:57 | disposition home or self-care (01) ==
LOC: JER 11:14
PROC: 3E033NZ Introduction of Analgesics, Hypnotics, Sedatives into Peripheral Vein, Percutaneous Approach (ICD-10-PCS; principal; 2025-03-18)
DX: R10.13 Epigastric pain (principal); I77.819 Aortic ectasia, unspecified site; R91.1 Solitary pulmonary nodule
CPT/HCPCS: 36415; 71045-TC-FY; 71275-TC; 74174-TC; 80053; 84484; 85025; 85610; 85730; 86803; 86850; 86900; 86901; 87389; 93005; 93010; 96374; 99285-25; Q9967